=== PATIENT | male | born 1975 | race African-American/Black ===

== ENCOUNTER → 2017-02-23 17:04 | Emergency (ER) | payer MEDICAID | END | disposition left against medical advice (07) | LOC: D.ER 17:04 | DX: Z02.9 Encounter for administrative examinations, unspecified (principal) ==

== ENCOUNTER 2017-10-08 00:53 | Inpatient (IN) | payer MEDICAID ==
[~2017-10-08] VITALS: Ht 182.9 cm; Wt 72.7 kg
[2017-10-08] MEDS ORDERED: METOPROLOL TART50 MG PO (02:16)
[2017-10-08] MEDS ORDERED: TRIUMEQ PO (03:04)
[2017-10-08] MEDS ORDERED: [UNRECOGNIZED DRUG - OTHER] PO (03:05)
[2017-10-08 03:09] VITALS: BP 134/85; Ht 182.9 cm; Wt 72.7 kg
[2017-10-08 07:01] VITALS: BP 159/100
[2017-10-08 09:25] VITALS: BP 151/105
[2017-10-08 12:43] VITALS: BP 151/103
[2017-10-08 17:32] VITALS: BP 142/92
[2017-10-08 20:00] VITALS: BP 132/79
[2017-10-09] VITALS: BP 120/76
[2017-10-09 04:00] VITALS: BP 127/82
[2017-10-09 06:09] LABS: ALBUMIN 2.8 g/dL (3.4-5.0); ANION GAP 12.2 mmol/L (8-16); BILIRUBIN - TOTAL 0.21 mg/dL (0.2-1.3); CALCIUM 8.4 mg/dL (8.5-10.1); CREATININE - SERUM 1.2 mg/dL (0.6-1.3); POTASSIUM - SERUM 3.2 mmol/L (3.5-5.1); PROTEIN - SERUM 6.9 g/dL (6.4-8.2)
[2017-10-09 06:15] LABS: HEMATOCRIT 35.3 % (42.0-54.0); MCH 32.9 pg (26.0-34.0); MCV 96.7 fL (80.0-100.0); MEAN PLATELET VOLUME 9.7 fL (7.4-10.4); PLATELET COUNT 252 10x3/uL (130-400); RBC 3.65 10x6/uL (4.20-6.10); RDW 15.8 % (11.5-14.5); WBC 3.6 10x3/uL (4.8-10.8)
[2017-10-09 07:42] LABS: EOSINOPHILS 2 % (0-7); LYMPHOCYTES 42 % (15-50); MONOCYTES 14 % (2-11); NEUTROPHILS 40 % (40-80); PLATELET ESTIMATE NORMAL
[2017-10-09 10:18] VITALS: BP 138/90
[2017-10-09 17:37] VITALS: BP 126/84
[2017-10-09 17:51] VITALS: BP 121/85
[2017-10-09] MEDS ORDERED: DIFLUCAN200 MG PO (18:15)
[2017-10-09] MEDS ORDERED: DOXYCYCLINE HY100 M2 PO (18:15)
[2017-10-12 13:14] LABS: EHRLICHIA CHAFF IGG Negative (Neg:<1:64); EHRLICHIA CHAFF IGM Negative (Neg:<1:20); HGE IGG TITER Negative (Neg:<1:64); HGE IGM TITER Negative (Neg:<1:20)
[2017-10-12 20:08] LABS: RMSF IGM 0.16 index (0.00-0.89)
[2017-10-17 13:16] LABS: F. TULARENSIS - IGG Negative (()); F. TULARENSIS - IGM Negative (())
== END 2017-10-09 19:15 | disposition home or self-care (01) | DRG 976 ==
LOC: D.M2 00:53
PROVIDERS: Family Medicine; Student in an Organized Health Care Education/Training Program
DX: B20 Human immunodeficiency virus [HIV] disease (principal); J18.9 Pneumonia, unspecified organism; B37.81 Candidal esophagitis; I10 Essential (primary) hypertension; K21.9 Gastro-esophageal reflux disease without esophagitis; F41.8 Other specified anxiety disorders; L21.9 Seborrheic dermatitis, unspecified; M25.562 Pain in left knee; M25.561 Pain in right knee; Z87.891 Personal history of nicotine dependence

== ENCOUNTER 2018-05-13 03:29 | Inpatient (IN) | payer MEDICAID ==
[~2018-05-13] VITALS: Ht 182.9 cm; Wt 65.8 kg
[~2018-05-13 03:29] MED LIST: DIFLUCAN200 MG PO; DOXYCYCLINE HY100 M2 PO; METOPROLOL TART50 MG PO; TRIUMEQ PO; [UNRECOGNIZED DRUG - OTHER] PO
[2018-05-13 05:05] VITALS: BP 142/93
[2018-05-13 06:44] LABS: BASOPHILS 0 % (0-2); EOSINOPHILS 0.5 % (0-7); HEMATOCRIT 36.4 % (42.0-54.0); HEMOGLOBIN 12.6 g/dL (13.5-17.5); LYMPHOCYTES 19.2 % (15-50); MCH 32.6 pg (26.0-34.0); MCHC 34.6 g/dL (31.0-37.0); MCV 94.3 fL (80.0-100.0); MEAN PLATELET VOLUME 9.4 fL (7.4-10.4); MONOCYTES 18.7 % (2-11); NEUTROPHILS 61.6 % (40-80); PLATELET COUNT 234 10x3/uL (130-400); RBC 3.86 10x6/uL (4.20-6.10); RDW 13.5 % (11.5-14.5); WBC 3.6 10x3/uL (4.8-10.8)
[2018-05-13 07:09] LABS: ALBUMIN 2.7 g/dL (3.4-5.0); ANION GAP 9.4 mmol/L (8-16); BILIRUBIN - TOTAL 0.36 mg/dL (0.2-1.3); CARBON DIOXIDE 31.5 mmol/L (21.0-32.0); CREATININE - SERUM 1.2 mg/dL (0.6-1.3); PROTEIN - SERUM 7.1 g/dL (6.4-8.2)
[2018-05-13 07:17] LABS: POTASSIUM - SERUM 2.9 mmol/L (3.5-5.1)
[2018-05-13 07:30] VITALS: BP 136/77
[2018-05-13 10:00] VITALS: BP 140/84
[2018-05-13 13:00] VITALS: BP 142/66
[2018-05-13 20:44] VITALS: BP 147/95
[2018-05-14 00:24] VITALS: BP 158/84
[2018-05-14 04:58] VITALS: BP 146/86
[2018-05-14 07:13] LABS: BASOPHILS 0.3 % (0-2); EOSINOPHILS 0.8 % (0-7); HEMATOCRIT 34.2 % (42.0-54.0); HEMOGLOBIN 11.8 g/dL (13.5-17.5); MCH 32.3 pg (26.0-34.0); MCHC 34.5 g/dL (31.0-37.0); MCV 93.7 fL (80.0-100.0); MONOCYTES 19.1 % (2-11); NEUTROPHILS 61.8 % (40-80); PLATELET COUNT 225 10x3/uL (130-400); RBC 3.65 10x6/uL (4.20-6.10); RDW 13.3 % (11.5-14.5); WBC 3.8 10x3/uL (4.8-10.8)
[2018-05-14 07:30] LABS: PROTIME 12.8 SECONDS (11.6-15.0)
[2018-05-14 07:40] LABS: ALBUMIN 2.3 g/dL (3.4-5.0); ALKALINE PHOSPHATASE 108 U/L (46-116); ALT (SGPT) 13 U/L (10-68); BILIRUBIN - TOTAL 0.32 mg/dL (0.2-1.3); CALC OSMOLALITY 271 mosm/kg (275-300); CALCIUM 7.6 mg/dL (8.5-10.1); CARBON DIOXIDE 32.2 mmol/L (21.0-32.0); CHLORIDE - SERUM 101 mmol/L (98-107); GLUCOSE 93 mg/dL (74-106); POTASSIUM - SERUM 3.2 mmol/L (3.5-5.1); PROTEIN - SERUM 6.3 g/dL (6.4-8.2); SODIUM 137 mmol/L (136-145); UREA NITROGEN 8 mg/dL (7-18); eGFR NON AFRICAN AMERICAN 87 mL/min (90-120)
[2018-05-14 08:39] VITALS: BP 135/80
[2018-05-14 13:02] VITALS: BP 124/94
[2018-05-14 14:49] VITALS: Ht 182.9 cm; Wt 65.8 kg
[2018-05-14 16:37] VITALS: BP 140/86
[2018-05-15 06:14] LABS: BASOPHILS 0 % (0-2); EOSINOPHILS 0.7 % (0-7); HEMATOCRIT 32.5 % (42.0-54.0); HEMOGLOBIN 11.2 g/dL (13.5-17.5); IMMATURE GRANULOCYTES 0.2 % (0-5); LYMPHOCYTES 17.7 % (15-50); MCH 32.2 pg (26.0-34.0); MCHC 34.5 g/dL (31.0-37.0); MCV 93.4 fL (80.0-100.0); MEAN PLATELET VOLUME 9.4 fL (7.4-10.4); MONOCYTES 15.1 % (2-11); NEUTROPHILS 66.3 % (40-80); PLATELET COUNT 247 10x3/uL (130-400); RBC 3.48 10x6/uL (4.20-6.10); RDW 13.4 % (11.5-14.5); WBC 4.3 10x3/uL (4.8-10.8)
[2018-05-15 06:40] LABS: ALBUMIN 2.1 g/dL (3.4-5.0); ANION GAP 8.5 mmol/L (8-16); BILIRUBIN - TOTAL 0.29 mg/dL (0.2-1.3); CALCIUM 7.4 mg/dL (8.5-10.1); CARBON DIOXIDE 29.5 mmol/L (21.0-32.0); CREATININE - SERUM 1.2 mg/dL (0.6-1.3); PROTEIN - SERUM 5.9 g/dL (6.4-8.2)
[2018-05-15 13:24] VITALS: BP 147/88
[2018-05-15 16:40] VITALS: BP 155/92
[2018-05-15 20:32] VITALS: BP 142/80
[2018-05-16 00:38] VITALS: BP 127/82
[2018-05-16 06:45] LABS: HEMATOCRIT 31.1 % (42.0-54.0); HEMOGLOBIN 10.6 g/dL (13.5-17.5); MCH 32.1 pg (26.0-34.0); MCHC 34.1 g/dL (31.0-37.0); MCV 94.2 fL (80.0-100.0); MEAN PLATELET VOLUME 9.5 fL (7.4-10.4); PLATELET COUNT 240 10x3/uL (130-400); RDW 13.5 % (11.5-14.5)
[2018-05-16 07:24] LABS: ALKALINE PHOSPHATASE 91 U/L (46-116); ALT (SGPT) 8 U/L (10-68); BILIRUBIN - TOTAL 0.18 mg/dL (0.2-1.3); CALC OSMOLALITY 272 mosm/kg (275-300); CALCIUM 7.4 mg/dL (8.5-10.1); CARBON DIOXIDE 28.6 mmol/L (21.0-32.0); CHLORIDE - SERUM 105 mmol/L (98-107); CREATININE - SERUM 1.1 mg/dL (0.6-1.3); GLUCOSE 93 mg/dL (74-106); PROTEIN - SERUM 5.8 g/dL (6.4-8.2); SODIUM 137 mmol/L (136-145); UREA NITROGEN 9 mg/dL (7-18); eGFR NON AFRICAN AMERICAN 78 mL/min (90-120)
[2018-05-16 07:26] LABS: POTASSIUM - SERUM 3.4 mmol/L (3.5-5.1)
[2018-05-16 07:35] LABS: ANISOCYTOSIS OCC; EOSINOPHILS 1 % (0-7); LYMPHOCYTES 21 % (15-50); MONOCYTES 20 % (2-11); NEUTROPHILS 54 % (40-80); PLATELET ESTIMATE NORMAL; SMUDGE CELLS OCC
[2018-05-16 09:14] VITALS: BP 142/85
[2018-05-16 12:19] VITALS: BP 105/50
[2018-05-16 15:26] LABS: BASOS 0 % (Not Estab.); CD4 - % CD4 POS. LYMPH 9.1 % (30.8-58.5); CD4 - ABSOLUTE CD4 HELPER 64 /uL (359-1519); EOS 2 % (Not Estab.); EOS (ABSOLUTE) 0.1 x10E3/uL (0.0-0.4); HEMATOCRIT 32.9 % (37.5-51.0); HEMOGLOBIN 11.1 g/dL (13.0-17.7); LYMPHS 16 % (Not Estab.); LYMPHS (ABSOLUTE) 0.7 x10E3/uL (0.7-3.1); MCH 32.1 pg (26.6-33.0); MCHC 33.7 g/dL (31.5-35.7); MCV 95 fL (79-97); MONOCYTES 17 % (Not Estab.); MONOCYTES (ABSOLUTE) 0.7 x10E3/uL (0.1-0.9); NEUTROPHILS 65 % (Not Estab.); NEUTROPHILS (ABSOLUTE) 2.7 x10E3/uL (1.4-7.0); PLATELETS 282 x10E3/uL (150-379); RBC 3.46 x10E6/uL (4.14-5.80); RDW 14.3 % (12.3-15.4); WBC 4.2 x10E3/uL (3.4-10.8)
[2018-05-16 16:17] VITALS: BP 140/86
[2018-05-16 21:29] VITALS: BP 147/95
[2018-05-17 00:12] VITALS: BP 156/92
[2018-05-17 04:36] VITALS: BP 156/88
[2018-05-17 05:58] LABS: BASOPHILS 0 % (0-2); EOSINOPHILS 3.3 % (0-7); HEMATOCRIT 33.6 % (42.0-54.0); HEMOGLOBIN 11.6 g/dL (13.5-17.5); IMMATURE GRANULOCYTES 0.4 % (0-5); MCH 32.5 pg (26.0-34.0); MCHC 34.5 g/dL (31.0-37.0); MCV 94.1 fL (80.0-100.0); MEAN PLATELET VOLUME 9.3 fL (7.4-10.4); MONOCYTES 13.1 % (2-11); NEUTROPHILS 56.2 % (40-80); PLATELET COUNT 232 10x3/uL (130-400); RBC 3.57 10x6/uL (4.20-6.10); RDW 13.8 % (11.5-14.5); WBC 2.7 10x3/uL (4.8-10.8)
[2018-05-17 06:14] LABS: ALBUMIN 2.2 g/dL (3.4-5.0); ALKALINE PHOSPHATASE 101 U/L (46-116); ALT (SGPT) 8 U/L (10-68); BILIRUBIN - TOTAL 0.16 mg/dL (0.2-1.3); CALC OSMOLALITY 275 mosm/kg (275-300); CALCIUM 7.7 mg/dL (8.5-10.1); CARBON DIOXIDE 29.4 mmol/L (21.0-32.0); CHLORIDE - SERUM 105 mmol/L (98-107); GLUCOSE 96 mg/dL (74-106); POTASSIUM - SERUM 3.5 mmol/L (3.5-5.1); PROTEIN - SERUM 6.1 g/dL (6.4-8.2); SODIUM 139 mmol/L (136-145); UREA NITROGEN 8 mg/dL (7-18); eGFR NON AFRICAN AMERICAN 87 mL/min (90-120)
[2018-05-17 08:54] VITALS: BP 123/79
[2018-05-17 16:15] VITALS: BP 144/84
[2018-05-17 20:00] VITALS: BP 153/86
[2018-05-18] VITALS: BP 128/80
[2018-05-18 04:00] VITALS: BP 138/86
[2018-05-18 05:28] LABS: BASOPHILS 0 % (0-2); HEMATOCRIT 33.6 % (42.0-54.0); HEMOGLOBIN 11.3 g/dL (13.5-17.5); LYMPHOCYTES 29.5 % (15-50); MCH 31.6 pg (26.0-34.0); MCHC 33.6 g/dL (31.0-37.0); MCV 93.9 fL (80.0-100.0); MEAN PLATELET VOLUME 9.5 fL (7.4-10.4); MONOCYTES 13.8 % (2-11); NEUTROPHILS 51.7 % (40-80); PLATELET COUNT 261 10x3/uL (130-400); RBC 3.58 10x6/uL (4.20-6.10); RDW 13.7 % (11.5-14.5); WBC 2.6 10x3/uL (4.8-10.8)
[2018-05-18 06:09] LABS: ALBUMIN 2.2 g/dL (3.4-5.0); ALKALINE PHOSPHATASE 103 U/L (46-116); ALT (SGPT) 9 U/L (10-68); BILIRUBIN - TOTAL 0.17 mg/dL (0.2-1.3); CALC OSMOLALITY 272 mosm/kg (275-300); CALCIUM 7.8 mg/dL (8.5-10.1); CARBON DIOXIDE 28.8 mmol/L (21.0-32.0); CHLORIDE - SERUM 104 mmol/L (98-107); GLUCOSE 88 mg/dL (74-106); POTASSIUM - SERUM 3.5 mmol/L (3.5-5.1); PROTEIN - SERUM 6.2 g/dL (6.4-8.2); SODIUM 138 mmol/L (136-145); UREA NITROGEN 8 mg/dL (7-18); eGFR NON AFRICAN AMERICAN 87 mL/min (90-120)
[2018-05-18 09:06] VITALS: BP 125/85
[2018-05-18 11:15] VITALS: BP 133/83
[2018-05-18 16:11] VITALS: BP 151/87
[2018-05-18 21:27] VITALS: BP 128/81
[2018-05-19] VITALS: BP 142/86
[2018-05-19 04:00] VITALS: BP 160/94
[2018-05-19 05:46] LABS: BASOPHILS 0 % (0-2); EOSINOPHILS 4.9 % (0-7); HEMATOCRIT 33.8 % (42.0-54.0); HEMOGLOBIN 11.4 g/dL (13.5-17.5); IMMATURE GRANULOCYTES 0.3 % (0-5); LYMPHOCYTES 20.5 % (15-50); MCH 31.6 pg (26.0-34.0); MCHC 33.7 g/dL (31.0-37.0); MCV 93.6 fL (80.0-100.0); MEAN PLATELET VOLUME 9.5 fL (7.4-10.4); MONOCYTES 18.7 % (2-11); NEUTROPHILS 55.6 % (40-80); PLATELET COUNT 285 10x3/uL (130-400); RBC 3.61 10x6/uL (4.20-6.10); RDW 13.6 % (11.5-14.5)
[2018-05-19 05:47] LABS: WBC 3.3 10x3/uL (4.8-10.8)
[2018-05-19 06:47] LABS: ALKALINE PHOSPHATASE 102 U/L (46-116); ALT (SGPT) 7 U/L (10-68); BILIRUBIN - TOTAL 0.28 mg/dL (0.2-1.3); CALC OSMOLALITY 269 mosm/kg (275-300); CALCIUM 7.8 mg/dL (8.5-10.1); CARBON DIOXIDE 26.1 mmol/L (21.0-32.0); CHLORIDE - SERUM 105 mmol/L (98-107); GLUCOSE 96 mg/dL (74-106); PROTEIN - SERUM 6.1 g/dL (6.4-8.2); SODIUM 136 mmol/L (136-145); UREA NITROGEN 7 mg/dL (7-18); eGFR NON AFRICAN AMERICAN 87 mL/min (90-120)
[2018-05-19 08:15] VITALS: BP 158/81
[2018-05-19 12:19] VITALS: BP 133/82
[2018-05-19 16:00] VITALS: BP 153/96
[2018-05-19 20:00] VITALS: BP 150/95
[2018-05-20 05:35] VITALS: BP 161/94
[2018-05-20 07:00] LABS: BASOPHILS 0.2 % (0-2); HEMATOCRIT 33.8 % (42.0-54.0); HEMOGLOBIN 11.9 g/dL (13.5-17.5); IMMATURE GRANULOCYTES 0.2 % (0-5); LYMPHOCYTES 15.4 % (15-50); MCH 32.8 pg (26.0-34.0); MCHC 35.2 g/dL (31.0-37.0); MCV 93.1 fL (80.0-100.0); MEAN PLATELET VOLUME 9.8 fL (7.4-10.4); MONOCYTES 15.9 % (2-11); NEUTROPHILS 66.3 % (40-80); PLATELET COUNT 281 10x3/uL (130-400); RBC 3.63 10x6/uL (4.20-6.10); RDW 13.6 % (11.5-14.5)
[2018-05-20 07:25] LABS: ALBUMIN 2.3 g/dL (3.4-5.0); ALKALINE PHOSPHATASE 127 U/L (46-116); CALC OSMOLALITY 272 mosm/kg (275-300); CALCIUM 7.9 mg/dL (8.5-10.1); CARBON DIOXIDE 31.3 mmol/L (21.0-32.0); CHLORIDE - SERUM 102 mmol/L (98-107); CREATININE - SERUM 0.9 mg/dL (0.6-1.3); GLUCOSE 88 mg/dL (74-106); POTASSIUM - SERUM 3.6 mmol/L (3.5-5.1); PROTEIN - SERUM 6.7 g/dL (6.4-8.2); SODIUM 138 mmol/L (136-145); UREA NITROGEN 8 mg/dL (7-18); eGFR NON AFRICAN AMERICAN > 90 mL/min (90-120)
[2018-05-20 07:26] LABS: ALT (SGPT) 16 U/L (10-68)
[2018-05-20 08:20] VITALS: BP 176/103
[2018-05-20 13:16] VITALS: BP 160/104
[2018-05-20 16:12] LABS: HISTOPLASMA GAL MANNAN AG SER <0.5 (<0.5 ng/mL)
[2018-05-20 17:05] VITALS: BP 162/72
[2018-05-20 20:35] VITALS: BP 156/106
[2018-05-21 04:19] VITALS: BP 139/83
[2018-05-21 07:20] LABS: BASOPHILS 0.2 % (0-2); EOSINOPHILS 0 % (0-7); HEMATOCRIT 36.1 % (42.0-54.0); HEMOGLOBIN 12.6 g/dL (13.5-17.5); IMMATURE GRANULOCYTES 0.2 % (0-5); LYMPHOCYTES 16.8 % (15-50); MCH 32.3 pg (26.0-34.0); MCHC 34.9 g/dL (31.0-37.0); MCV 92.6 fL (80.0-100.0); MEAN PLATELET VOLUME 9.6 fL (7.4-10.4); MONOCYTES 11.4 % (2-11); NEUTROPHILS 71.4 % (40-80); PLATELET COUNT 281 10x3/uL (130-400); RDW 13.9 % (11.5-14.5)
[2018-05-21 07:25] LABS: WBC 5.2 10x3/uL (4.8-10.8)
[2018-05-21 07:45] LABS: ALBUMIN 2.4 g/dL (3.4-5.0); ALKALINE PHOSPHATASE 115 U/L (46-116); ALT (SGPT) 15 U/L (10-68); BILIRUBIN - TOTAL 0.39 mg/dL (0.2-1.3); CALC OSMOLALITY 273 mosm/kg (275-300); CARBON DIOXIDE 29.6 mmol/L (21.0-32.0); CHLORIDE - SERUM 101 mmol/L (98-107); CREATININE - SERUM 1.1 mg/dL (0.6-1.3); GLUCOSE 119 mg/dL (74-106); POTASSIUM - SERUM 3.4 mmol/L (3.5-5.1); PROTEIN - SERUM 6.8 g/dL (6.4-8.2); SODIUM 137 mmol/L (136-145); UREA NITROGEN 9 mg/dL (7-18); eGFR NON AFRICAN AMERICAN 78 mL/min (90-120)
[2018-05-21 08:20] VITALS: BP 134/87
[2018-05-21 12:16] VITALS: BP 156/88
[2018-05-21 16:33] VITALS: BP 141/84
[2018-05-21 21:22] VITALS: BP 153/89
[2018-05-22 04:16] VITALS: BP 114/77
[2018-05-22 06:08] LABS: BASOPHILS 0 % (0-2); EOSINOPHILS 0.9 % (0-7); HEMATOCRIT 33.7 % (42.0-54.0); HEMOGLOBIN 11.8 g/dL (13.5-17.5); LYMPHOCYTES 29.4 % (15-50); MCH 33.1 pg (26.0-34.0); MCV 94.4 fL (80.0-100.0); MEAN PLATELET VOLUME 9.9 fL (7.4-10.4); MONOCYTES 16.3 % (2-11); NEUTROPHILS 53.4 % (40-80); PLATELET COUNT 265 10x3/uL (130-400); RBC 3.57 10x6/uL (4.20-6.10); RDW 14.1 % (11.5-14.5)
[2018-05-22 06:28] LABS: WBC 3.2 10x3/uL (4.8-10.8)
[2018-05-22 06:38] LABS: ALBUMIN 2.4 g/dL (3.4-5.0); ALKALINE PHOSPHATASE 107 U/L (46-116); BILIRUBIN - TOTAL 0.27 mg/dL (0.2-1.3); CALC OSMOLALITY 279 mosm/kg (275-300); CALCIUM 7.9 mg/dL (8.5-10.1); CARBON DIOXIDE 28.4 mmol/L (21.0-32.0); CHLORIDE - SERUM 105 mmol/L (98-107); GLUCOSE 119 mg/dL (74-106); POTASSIUM - SERUM 3.1 mmol/L (3.5-5.1); PROTEIN - SERUM 6.6 g/dL (6.4-8.2); SODIUM 141 mmol/L (136-145); UREA NITROGEN 8 mg/dL (7-18); eGFR NON AFRICAN AMERICAN 87 mL/min (90-120)
[2018-05-22 06:39] LABS: ALT (SGPT) 19 U/L (10-68)
[2018-05-22] MEDS ORDERED: VALTREX500 MG PO (09:23)
[2018-05-22] MEDS ORDERED: NYSTATIN ORAL SU5 ML PO (09:23)
[2018-05-22 09:42] VITALS: BP 152/93
== END 2018-05-22 12:17 | disposition home or self-care (01) | DRG 975 ==
LOC: D.ER 03:29 → D.EDHOLD 05:14 → D.MS 05:14 → D.SDCHOLD 05-16 13:21 → D.MS 05-16 13:22
PROVIDERS: Family Medicine; Family Medicine Adult Medicine; Internal Medicine Gastroenterology; Internal Medicine Nephrology; Student in an Organized Health Care Education/Training Program
DX: B20 Human immunodeficiency virus [HIV] disease (principal); B00.89 Other herpesviral infection; K22.10 Ulcer of esophagus without bleeding; B37.81 Candidal esophagitis; E44.0 Moderate protein-calorie malnutrition; Z68.1 Body mass index [BMI] 19.9 or less, adult; B37.0 Candidal stomatitis; R13.10 Dysphagia, unspecified; F32.9 Major depressive disorder, single episode, unspecified; F41.9 Anxiety disorder, unspecified; E87.6 Hypokalemia; D64.9 Anemia, unspecified; L21.9 Seborrheic dermatitis, unspecified; I10 Essential (primary) hypertension

== ENCOUNTER 2018-06-29 21:31 | Emergency (ER) | payer MEDICAID ==
[~2018-06-29] VITALS: Ht 182.9 cm; Wt 70.5 kg
[~2018-06-29 21:31] MED LIST changes: +NYSTATIN ORAL SU5 ML PO; +VALTREX500 MG PO
[2018-06-29 21:34] VITALS: Ht 182.9 cm; Wt 70.5 kg
[2018-06-29 22:07] LABS: BASOPHILS 0.2 % (0-2); EOSINOPHILS 1.6 % (0-7); HEMATOCRIT 39.6 % (42.0-54.0); HEMOGLOBIN 13.7 g/dL (13.5-17.5); IMMATURE GRANULOCYTES 0.2 % (0-5); LYMPHOCYTES 28.2 % (15-50); MCH 33.8 pg (26.0-34.0); MCHC 34.6 g/dL (31.0-37.0); MCV 97.8 fL (80.0-100.0); MEAN PLATELET VOLUME 10.5 fL (7.4-10.4); MONOCYTES 16.6 % (2-11); NEUTROPHILS 53.2 % (40-80); RBC 4.05 10x6/uL (4.20-6.10); RDW 15.5 % (11.5-14.5); WBC 5.1 10x3/uL (4.8-10.8)
[2018-06-29 22:13] LABS: PLATELET COUNT 150 10x3/uL (130-400)
[2018-06-29 22:22] LABS: INR 0.95 (0.85-1.17); PROTIME 12.3 SECONDS (11.6-15.0)
[2018-06-29 22:30] LABS: ALBUMIN 3.3 g/dL (3.4-5.0); ALKALINE PHOSPHATASE 93 U/L (46-116); ALT (SGPT) 19 U/L (10-68); BILIRUBIN - TOTAL 0.36 mg/dL (0.2-1.3); CALC OSMOLALITY 281 mosm/kg (275-300); CALCIUM 8.5 mg/dL (8.5-10.1); CARBON DIOXIDE 29.6 mmol/L (21.0-32.0); CHLORIDE - SERUM 105 mmol/L (98-107); CREATININE - SERUM 1.2 mg/dL (0.6-1.3); GLUCOSE 91 mg/dL (74-106); POTASSIUM - SERUM 3.2 mmol/L (3.5-5.1); SODIUM 141 mmol/L (136-145); UREA NITROGEN 15 mg/dL (7-18); eGFR NON AFRICAN AMERICAN 71 mL/min (90-120)
[2018-06-29 22:41] LABS: CKMB 1.7 U/L (0.0-3.6); CREATINE KINASE 151 UL (21-232); PRO BNP 293 pg/mL (0-125); TROPONIN-I < 0.017 ng/mL (0.000-0.060)
[2018-06-29 23:30] VITALS: BP 157/105
== END 2018-06-29 23:31 | disposition home or self-care (01) ==
LOC: D.ER 21:31
PROVIDERS: Family Medicine
DX: R07.89 Other chest pain (principal); G40.909 Epilepsy, unspecified, not intractable, without status epilepticus; K21.9 Gastro-esophageal reflux disease without esophagitis

== ENCOUNTER 2018-08-14 19:19 | Emergency (ER) | payer MEDICAID ==
[~2018-08-14] VITALS: Ht 182.9 cm; Wt 70.5 kg
[2018-08-14 19:23] VITALS: Ht 182.9 cm; Wt 70.5 kg
[2018-08-14] MEDS ORDERED: NORCO 10-325 TA1 TAB PO (19:49)
[2018-08-14 20:22] VITALS: BP 158/101
== END 2018-08-14 20:22 | disposition home or self-care (01) ==
LOC: D.ER 19:19
DX: J02.9 Acute pharyngitis, unspecified (principal); C15.9 Malignant neoplasm of esophagus, unspecified; B20 Human immunodeficiency virus [HIV] disease; G40.909 Epilepsy, unspecified, not intractable, without status epilepticus; I10 Essential (primary) hypertension

== ENCOUNTER 2018-08-19 22:38 | Inpatient (IN) | payer MEDICAID ==
[~2018-08-19] VITALS: Ht 182.9 cm; Wt 68.0 kg
--- NOTE | ~2018-08-19 | MORECARE ---
CASE MANAGEMENT DISCHARGE SUMMARY PATIENT: DEJAH BALDWIN UNIT: [id number] ADM DATE: 08/20/18 AGE: 42 : 75 SEX: M ROOM/BED: D.2219 AUTHOR: ARASELI CISNEROS PHYSICIAN: REFERRING PHYSICIAN: JIM SHAH MD DATE OF SERVICE: 08/22/18 Discharge Plan Patient Name: DEJAH BALDWIN Facility: [facility]:[place] : 1975 Planned Disposition: Home Anticipated Discharge Date: Discharge Date: Expected LOS: Initial Reviewer: [email or web address] Initial Review Date: 08/20/2018 Generated: 08/22/18 12:23 pm Patient Name: DEJAH BALDWIN Page 12151 at 1123 All edits/amendments must be made on the electronic document DICTATION DATE: 08/22/18 112 EARTH SCIENCE TEACHER: JORI 08/22/18 112 RPT#: [id number] DC DATE: STATUS: ADM IN [facility] [address] [place] [address] END OF REPORT
--- NOTE | ~2018-08-19 | MORECARE ---
CASE MANAGEMENT DISCHARGE SUMMARY PATIENT: DEJAH BALDWIN UNIT: [id number] ADM DATE: 08/20/18 AGE: 42 : 75 SEX: M ROOM/BED: D.2219 AUTHOR: ARASELI CISNEROS PHYSICIAN: REFERRING PHYSICIAN: JMI SHAH MD DATE OF SERVICE: 08/22/18 Discharge Plan Patient Name: DEJAH BALDWIN Facility: [facility]:[place] : 1975 Planned Disposition: Home Anticipated Discharge Date: Discharge Date: Expected LOS: Initial Reviewer: [email or web address] Initial Review Date: 08/20/2018 Generated: 08/22/18 12:37 pm Comments DCP- Discharge Planning Updated by [email or web address]: Prema Farfan on 08/22/18 10:[address] Patient Name: DEJAH BALDWIN Admission Status: ER Accout number: [id number] Admission Date: 08-20-2018 : 1975 Admission Diagnosis: Attending: JIM SHAH Current LOS: 2 Anticipated DC Date: Planned Disposition: Home Primary Insurance: MEDICAID [place] Discharge Planning Comments: CM met with patient to assess discharge planning needs. Patient stated that he lives independently with his mother and she will be the one to take him home. There is 3 steps to enter his home. He denies any needs for HH at this time, but is requesting a BSC. I will send order to [facility]. CM will continue to follow and assist with DC planning. Bench Assembler Battery: Prema Farfan DCPIA - Discharge Planning Initial Assessment Updated by [email or web address]: Prema Farfan on 08/22/18 11:26 am * Is the patient Alert and Oriented? Yes * How many steps to enter\exit or inside your home? * [facility] * Pharmacy Budget * Preadmission Environment Home with Family * ADLs Independent * Equipment None * List name and contact numbers for known caregivers / representatives who currently or will assist patient after discharge: Chai (mom) [phone] * Verbal permission to speak to the caregivers and representatives has been obtained from the patient. N/A * Community resources currently utilized None * Additional services required to return to the preadmission environment? Yes * Can the patient safely return to the preadmission environment? Yes * Has this patient been hospitalized within the prior 30 days at any hospital? No External Providers External Provider: [facility] Next Contact Date: Service Request Date: Service Type: Resolution: Reviewer: Comments: Last DP export: 08/22/18 10:30 Patient Name: DEJAH BALDWIN Page 59839 at 1137 All edits/amendments must be made on the electronic document DICTATION DATE: 08/22/18 1136 MANAGER TELECOM: JORI 08/22/18 1136 RPT#: [id number] DC DATE: STATUS: ADM IN [facility] [address] [place] [address] END OF REPORT
--- NOTE | ~2018-08-19 | MORECARE ---
CASE MANAGEMENT DISCHARGE SUMMARY PATIENT: DEJAH BALDWIN UNIT: [id number] ADM DATE: 08/20/18 AGE: 42 : 75 SEX: M ROOM/BED: D.2219 AUTHOR: ARASELI CISNEROS PHYSICIAN: REFERRING PHYSICIAN: JIM SHAH MD DATE OF SERVICE: 08/22/18 Discharge Plan Patient Name: DEJAH BALDWIN [facility] [facility] 1975 Planned Disposition: Home Anticipated Discharge Date: Discharge Date: Expected LOS: Initial Reviewer: [email or web address] Initial Review Date: 08/20/2018 Generated: 08/22/18 12:30 pm DCPIA - Discharge Planning Initial Assessment Updated by [email or web address]: Prema Farfan on 08/22/18 11:26 am * Is the patient Alert and Oriented? Yes * How many steps to enter\exit or inside your home? * [facility] * Pharmacy Budget * Preadmission Environment Home with Family * ADLs Independent * Equipment None * List name and contact numbers for known caregivers / representatives who currently or will assist patient after discharge: Chai (mom) [phone] * Verbal permission to speak to the caregivers and representatives has been obtained from the patient. N/A * Community resources currently utilized None * Additional services required to return to the preadmission environment? Yes * Can the patient safely return to the preadmission environment? Yes * Has this patient been hospitalized within the prior 30 days at any hospital? No Last DP export: 08/22/18 10:23 Patient Name: DEJAH BALDWIN Page 59720 at 1130 All edits/amendments must be made on the electronic document DICTATION DATE: 08/22/18 1129 JOB MOLDER: JORI 08/22/18 1129 RPT#: [id number] DC DATE: STATUS: ADM IN [facility] [address] [place] [address] END OF REPORT
[~2018-08-19 22:38] MED LIST changes: +NORCO 10-325 TA1 TAB PO
[2018-08-20 00:27] LABS: BASOPHILS 0.2 % (0-2); EOSINOPHILS 0 % (0-7); HEMATOCRIT 38.7 % (42.0-54.0); HEMOGLOBIN 13.1 g/dL (13.5-17.5); IMMATURE GRANULOCYTES 0.4 % (0-5); LYMPHOCYTES 13.3 % (15-50); MCH 32.3 pg (26.0-34.0); MCHC 33.9 g/dL (31.0-37.0); MCV 95.3 fL (80.0-100.0); MEAN PLATELET VOLUME 9.3 fL (7.4-10.4); NEUTROPHILS 69.1 % (40-80); RBC 4.06 10x6/uL (4.20-6.10); RDW 13.4 % (11.5-14.5); WBC 4.9 10x3/uL (4.8-10.8)
[2018-08-20 00:29] LABS: PLATELET COUNT 249 10x3/uL (130-400)
[2018-08-20 00:35] LABS: ALBUMIN 2.9 g/dL (3.4-5.0); ANION GAP 9.9 mmol/L (8-16); BILIRUBIN - TOTAL 0.44 mg/dL (0.2-1.3); CALCIUM 8.4 mg/dL (8.5-10.1); CARBON DIOXIDE 30.1 mmol/L (21.0-32.0); CREATININE - SERUM 1.2 mg/dL (0.6-1.3)
[2018-08-20 00:42] LABS: MAGNESIUM - SERUM 2.1 mg/dL (1.8-2.4)
[2018-08-20 01:31] LABS: APPEARANCE HAZY (CLEAR); COLOR DK YELLOW (YELLOW); GLUCOSE NEGATIVE (NEGATIVE); NITRITE NEGATIVE (NEGATIVE); PROTEIN 1+ mg/dL (NEGATIVE)
[2018-08-20 01:32] LABS: BILIRUBIN NEGATIVE (NEGATIVE); KETONE NEGATIVE (NEGATIVE)
[2018-08-20 01:33] LABS: BACTERIA FEW /hpf (NONE SEEN); EPITHELIAL CELLS 0-5 /hpf (0-5); MUCUS >1+ /lpf (NONE SEEN); RED CELLS - URINE NONE SEEN /hpf (0-5); WHITE CELLS - URINE 0-5 /hpf (0-5)
[2018-08-20 01:38] LABS: UDS - AMPHET NEGATIVE QUAL (NEGATIVE); UDS - BARB NEGATIVE QUAL (NEGATIVE); UDS - BENZO NEGATIVE QUAL (NEGATIVE); UDS - COCAINE POSITIVE QUAL (NEGATIVE); UDS - OPIATE NEGATIVE QUAL (NEGATIVE); UDS - PCP NEGATIVE QUAL (NEGATIVE); UDS - THC NEGATIVE QUAL (NEGATIVE)
[2018-08-20 03:27] VITALS: BP 157/106; BMI 20.4
[2018-08-20 05:18] VITALS: BP 157/106
[2018-08-20 08:24] VITALS: BP 138/86
[2018-08-20 10:34] VITALS: BMI 20.3
[2018-08-20 10:48] LABS: BASOPHILS 0.2 % (0-2); EOSINOPHILS 0.5 % (0-7); HEMATOCRIT 33.5 % (42.0-54.0); HEMOGLOBIN 11.3 g/dL (13.5-17.5); IMMATURE GRANULOCYTES 0.2 % (0-5); LYMPHOCYTES 17.6 % (15-50); MCH 32.5 pg (26.0-34.0); MCHC 33.7 g/dL (31.0-37.0); MCV 96.3 fL (80.0-100.0); MONOCYTES 14.3 % (2-11); NEUTROPHILS 67.2 % (40-80); PLATELET COUNT 234 10x3/uL (130-400); RBC 3.48 10x6/uL (4.20-6.10); RDW 13.5 % (11.5-14.5); WBC 4.3 10x3/uL (4.8-10.8)
[2018-08-20 12:04] VITALS: BP 140/76
[2018-08-20 15:15] LABS: ALBUMIN 2.5 g/dL (3.4-5.0); BILIRUBIN - TOTAL 0.29 mg/dL (0.2-1.3); CALCIUM 8.4 mg/dL (8.5-10.1); CARBON DIOXIDE 26.5 mmol/L (21.0-32.0); CREATININE - SERUM 1.2 mg/dL (0.6-1.3)
[2018-08-20 15:31] LABS: POTASSIUM - SERUM 3.5 mmol/L (3.5-5.1)
[2018-08-20 16:44] VITALS: BP 133/71
[2018-08-20 17:08] VITALS: Ht 182.9 cm; Wt 68.0 kg
[2018-08-20 21:11] VITALS: BP 129/72
[2018-08-21 07:09] LABS: BASOPHILS 0 % (0-2); EOSINOPHILS 0.4 % (0-7); HEMATOCRIT 36.1 % (42.0-54.0); HEMOGLOBIN 12.3 g/dL (13.5-17.5); IMMATURE GRANULOCYTES 0.2 % (0-5); LYMPHOCYTES 13.8 % (15-50); MCH 32.6 pg (26.0-34.0); MCHC 34.1 g/dL (31.0-37.0); MCV 95.8 fL (80.0-100.0); MEAN PLATELET VOLUME 9.5 fL (7.4-10.4); MONOCYTES 11.4 % (2-11); NEUTROPHILS 74.2 % (40-80); PLATELET COUNT 240 10x3/uL (130-400); RBC 3.77 10x6/uL (4.20-6.10); RDW 13.7 % (11.5-14.5)
[2018-08-21 07:11] LABS: WBC 5.4 10x3/uL (4.8-10.8)
[2018-08-21 07:32] LABS: ALBUMIN 2.5 g/dL (3.4-5.0); ALKALINE PHOSPHATASE 116 U/L (46-116); BILIRUBIN - TOTAL 0.29 mg/dL (0.2-1.3); CALCIUM 8.2 mg/dL (8.5-10.1); CARBON DIOXIDE 30.2 mmol/L (21.0-32.0); CHLORIDE - SERUM 101 mmol/L (98-107); CREATININE - SERUM 1.1 mg/dL (0.6-1.3); GLUCOSE 93 mg/dL (74-106); POTASSIUM - SERUM 3.5 mmol/L (3.5-5.1); PROTEIN - SERUM 7.1 g/dL (6.4-8.2); SODIUM 137 mmol/L (136-145); eGFR NON AFRICAN AMERICAN 78 mL/min (90-120)
[2018-08-21 07:36] LABS: ALT (SGPT) 5 U/L (10-68); CALC OSMOLALITY 272 mosm/kg (275-300); UREA NITROGEN 9 mg/dL (7-18)
[2018-08-21 08:17] LABS: RAPID PLASMA REAGIN Non Reactive (Non Reactive)
[2018-08-21 08:51] VITALS: BP 154/90
[2018-08-21 12:36] VITALS: BP 152/95
[2018-08-21 13:18] LABS: BASOS 0 % (Not Estab.); CD4 - % CD4 POS. LYMPH 8.5 % (30.8-58.5); CD4 - ABSOLUTE CD4 HELPER 60 /uL (359-1519); EOS 2 % (Not Estab.); EOS (ABSOLUTE) 0.1 x10E3/uL (0.0-0.4); HEMATOCRIT 39.9 % (37.5-51.0); LYMPHS 14 % (Not Estab.); LYMPHS (ABSOLUTE) 0.7 x10E3/uL (0.7-3.1); MCH 32.2 pg (26.6-33.0); MCHC 32.6 g/dL (31.5-35.7); MCV 99 fL (79-97); MONOCYTES 15 % (Not Estab.); MONOCYTES (ABSOLUTE) 0.7 x10E3/uL (0.1-0.9); NEUTROPHILS 69 % (Not Estab.); NEUTROPHILS (ABSOLUTE) 3.5 x10E3/uL (1.4-7.0); PLATELETS 290 x10E3/uL (150-379); RBC 4.04 x10E6/uL (4.14-5.80); RDW 13.9 % (12.3-15.4)
[2018-08-21 16:52] VITALS: BP 133/85
[2018-08-21 20:00] VITALS: BP 138/88
[2018-08-22 00:30] VITALS: BP 136/86
[2018-08-22 05:23] LABS: BASOPHILS 0.2 % (0-2); EOSINOPHILS 0.7 % (0-7); HEMATOCRIT 32.2 % (42.0-54.0); HEMOGLOBIN 11.3 g/dL (13.5-17.5); IMMATURE GRANULOCYTES 0.5 % (0-5); LYMPHOCYTES 22.4 % (15-50); MCH 33.5 pg (26.0-34.0); MCHC 35.1 g/dL (31.0-37.0); MCV 95.5 fL (80.0-100.0); MEAN PLATELET VOLUME 9.2 fL (7.4-10.4); MONOCYTES 16.1 % (2-11); NEUTROPHILS 60.1 % (40-80); PLATELET COUNT 247 10x3/uL (130-400); RBC 3.37 10x6/uL (4.20-6.10); RDW 13.8 % (11.5-14.5); WBC 4.3 10x3/uL (4.8-10.8)
[2018-08-22 05:47] LABS: INR 1.08 (0.85-1.17); PROTIME 13.7 SECONDS (11.6-15.0)
[2018-08-22 06:03] LABS: ALBUMIN 2.3 g/dL (3.4-5.0); ANION GAP 7.8 mmol/L (8-16); BILIRUBIN - TOTAL 0.25 mg/dL (0.2-1.3); CALCIUM 7.6 mg/dL (8.5-10.1); CARBON DIOXIDE 29.8 mmol/L (21.0-32.0); CREATININE - SERUM 1.2 mg/dL (0.6-1.3); POTASSIUM - SERUM 3.6 mmol/L (3.5-5.1); PRE-ALBUMIN 15.7 mg/dL (18.0-35.7); PROTEIN - SERUM 6.5 g/dL (6.4-8.2)
[2018-08-22 08:52] VITALS: BP 126/80
[2018-08-22 17:37] VITALS: BP 117/75
[2018-08-22 21:55] VITALS: BP 133/76
[2018-08-23 06:23] LABS: BASOPHILS 0 % (0-2); EOSINOPHILS 1.8 % (0-7); HEMATOCRIT 31.7 % (42.0-54.0); HEMOGLOBIN 10.4 g/dL (13.5-17.5); LYMPHOCYTES 19.8 % (15-50); MCH 31.6 pg (26.0-34.0); MCHC 32.8 g/dL (31.0-37.0); MCV 96.4 fL (80.0-100.0); MEAN PLATELET VOLUME 9.3 fL (7.4-10.4); NEUTROPHILS 66.4 % (40-80); PLATELET COUNT 259 10x3/uL (130-400); RBC 3.29 10x6/uL (4.20-6.10); RDW 13.8 % (11.5-14.5); WBC 4.5 10x3/uL (4.8-10.8)
[2018-08-23 06:30] LABS: ANION GAP 8.5 mmol/L (8-16); BILIRUBIN - TOTAL 0.17 mg/dL (0.2-1.3); CALCIUM 7.4 mg/dL (8.5-10.1); CARBON DIOXIDE 27.7 mmol/L (21.0-32.0); CREATININE - SERUM 1.2 mg/dL (0.6-1.3); POTASSIUM - SERUM 3.2 mmol/L (3.5-5.1)
[2018-08-23 06:37] VITALS: BP 137/80
[2018-08-23 07:56] VITALS: BP 150/86
[2018-08-23 11:56] VITALS: BP 140/72
[2018-08-23 17:17] VITALS: BP 149/82
[2018-08-23 22:08] VITALS: BP 133/84
[2018-08-24 06:11] VITALS: BP 136/80
[2018-08-24 06:11] LABS: BASOPHILS 0.2 % (0-2); EOSINOPHILS 1.6 % (0-7); HEMATOCRIT 33.1 % (42.0-54.0); IMMATURE GRANULOCYTES 0.2 % (0-5); LYMPHOCYTES 10.3 % (15-50); MCH 32.2 pg (26.0-34.0); MCHC 33.2 g/dL (31.0-37.0); MCV 96.8 fL (80.0-100.0); MEAN PLATELET VOLUME 9.5 fL (7.4-10.4); MONOCYTES 10.7 % (2-11); PLATELET COUNT 260 10x3/uL (130-400); RBC 3.42 10x6/uL (4.20-6.10); RDW 14.1 % (11.5-14.5); WBC 5.2 10x3/uL (4.8-10.8)
[2018-08-24 06:35] LABS: ALBUMIN 2.3 g/dL (3.4-5.0); ALKALINE PHOSPHATASE 115 U/L (46-116); BILIRUBIN - TOTAL 0.12 mg/dL (0.2-1.3); CALC OSMOLALITY 276 mosm/kg (275-300); CALCIUM 8.1 mg/dL (8.5-10.1); CARBON DIOXIDE 26.7 mmol/L (21.0-32.0); CHLORIDE - SERUM 107 mmol/L (98-107); CREATININE - SERUM 1.1 mg/dL (0.6-1.3); GLUCOSE 97 mg/dL (74-106); PROTEIN - SERUM 6.7 g/dL (6.4-8.2); SODIUM 139 mmol/L (136-145); UREA NITROGEN 9 mg/dL (7-18); eGFR NON AFRICAN AMERICAN 78 mL/min (90-120)
[2018-08-24 06:36] LABS: ALT (SGPT) 5 U/L (10-68)
[2018-08-24 10:04] VITALS: BP 137/87
[2018-08-24] MEDS ORDERED: DIFLUCAN200 MG PO (11:29)
[2018-08-24] MEDS ORDERED: DAPSONE100 MG PO (11:30)
[2018-08-24] MEDS ORDERED: CARAFATE1 G/10 ML PO (11:30)
[2018-08-24] MEDS ORDERED: PEPCID40 MG PO (11:31)
[2018-08-24] MEDS ORDERED: VALTREX500 MG PO (11:32)
[2018-08-24] MEDS ORDERED: PROTONIX40 MG PO (11:32)
[2018-08-24] MEDS ORDERED: ZOFRAN ODT4 MG/UDTAB PO (11:33)
[2018-08-24] MEDS ORDERED: ONCOLOGY MOUTHWASH PO (11:34)
[2018-08-24] MEDS ORDERED: ULTRAM50 MG PO (11:34)
== END 2018-08-24 15:04 | disposition home or self-care (01) | DRG 975 ==
LOC: D.ER 22:38 → D.MS 08-20 00:46 → D.EDHOLD 08-20 00:46 → D.MS 08-20 01:31
PROVIDERS: Emergency Medicine; Family Medicine; Internal Medicine Gastroenterology
PROC: 0DB58ZX Excision of Esophagus, Via Natural or Artificial Opening Endoscopic, Diagnostic (ICD-10-PCS; principal; 2018-08-22 11:30)
DX: B37.81 Candidal esophagitis (principal); B20 Human immunodeficiency virus [HIV] disease; K22.10 Ulcer of esophagus without bleeding; B00.89 Other herpesviral infection; K29.70 Gastritis, unspecified, without bleeding; E87.6 Hypokalemia

== ENCOUNTER 2018-10-18 18:15 | Emergency (ER) | payer MEDICAID ==
[~2018-10-18] VITALS: Ht 182.9 cm; Wt 70.5 kg
[~2018-10-18 18:15] MED LIST changes: +CARAFATE1 G/10 ML PO; +DAPSONE100 MG PO; +ONCOLOGY MOUTHWASH PO; +PEPCID40 MG PO; +PROTONIX40 MG PO; +ULTRAM50 MG PO; +ZOFRAN ODT4 MG/UDTAB PO
[2018-10-18 18:28] VITALS: Ht 182.9 cm; Wt 70.5 kg
[2018-10-18 19:08] LABS: BASOPHILS 0 % (0-2); EOSINOPHILS 0.9 % (0-7); HEMATOCRIT 32.5 % (42.0-54.0); HEMOGLOBIN 11.1 g/dL (13.5-17.5); IMMATURE GRANULOCYTES 0.2 % (0-5); LYMPHOCYTES 13.6 % (15-50); MCH 31.7 pg (26.0-34.0); MCHC 34.2 g/dL (31.0-37.0); MCV 92.9 fL (80.0-100.0); MEAN PLATELET VOLUME 10.1 fL (7.4-10.4); MONOCYTES 13.9 % (2-11); NEUTROPHILS 71.4 % (40-80); PLATELET COUNT 207 10x3/uL (130-400); RDW 14.7 % (11.5-14.5); WBC 6.4 10x3/uL (4.8-10.8)
[2018-10-18 19:44] LABS: ALBUMIN 3.2 g/dL (3.4-5.0); ALKALINE PHOSPHATASE 89 U/L (46-116); ALT (SGPT) 10 U/L (10-68); BILIRUBIN - TOTAL 0.38 mg/dL (0.2-1.3); CALC OSMOLALITY 280 mosm/kg (275-300); CALCIUM 8.7 mg/dL (8.5-10.1); CARBON DIOXIDE 26.1 mmol/L (21.0-32.0); CHLORIDE - SERUM 103 mmol/L (98-107); CREATININE - SERUM 1.2 mg/dL (0.6-1.3); GLUCOSE 115 mg/dL (74-106); PROTEIN - SERUM 8.2 g/dL (6.4-8.2); SODIUM 140 mmol/L (136-145); UREA NITROGEN 15 mg/dL (7-18); eGFR NON AFRICAN AMERICAN 70 mL/min (90-120)
[2018-10-18 19:49] LABS: MAGNESIUM - SERUM 1.9 mg/dL (1.8-2.4)
[2018-10-18 20:25] LABS: VALPROIC ACID (DEPAKOTE) < 3.0 ug/mL (50.0-100.0)
[2018-10-18] MEDS ORDERED: DEPAKOTE250 MG PO (20:30)
[2018-10-18 21:37] VITALS: BP 138/74
== END 2018-10-18 21:37 | disposition home or self-care (01) ==
LOC: D.ER 18:15
PROVIDERS: Family Medicine
DX: G40.909 Epilepsy, unspecified, not intractable, without status epilepticus (principal); F14.11 Cocaine abuse, in remission; E87.6 Hypokalemia; Z91.14 Patient's other noncompliance with medication regimen; I10 Essential (primary) hypertension; B20 Human immunodeficiency virus [HIV] disease

== ENCOUNTER 2018-12-14 18:38 | Inpatient (IN) | payer MEDICAID ==
[~2018-12-14] VITALS: Ht 182.9 cm; Wt 60.3 kg
[~2018-12-14 18:38] MED LIST changes: +DEPAKOTE250 MG PO
[2018-12-14 20:17] LABS: BASOPHILS 0.2 % (0-2); EOSINOPHILS 0.9 % (0-7); HEMATOCRIT 29.6 % (42.0-54.0); HEMOGLOBIN 9.9 g/dL (13.5-17.5); IMMATURE GRANULOCYTES 0.4 % (0-5); LYMPHOCYTES 12.3 % (15-50); MCH 30.9 pg (26.0-34.0); MCHC 33.4 g/dL (31.0-37.0); MCV 92.5 fL (80.0-100.0); MEAN PLATELET VOLUME 9.5 fL (7.4-10.4); MONOCYTES 11.9 % (2-11); NEUTROPHILS 74.3 % (40-80); PLATELET COUNT 239 10x3/uL (130-400); RDW 14.3 % (11.5-14.5); WBC 4.7 10x3/uL (4.8-10.8)
[2018-12-14 20:29] LABS: ALBUMIN 2.2 g/dL (3.4-5.0); ALKALINE PHOSPHATASE 101 U/L (46-116); BILIRUBIN - TOTAL 0.21 mg/dL (0.2-1.3); CALC OSMOLALITY 273 mosm/kg (275-300); CALCIUM 7.8 mg/dL (8.5-10.1); CHLORIDE - SERUM 101 mmol/L (98-107); CREATININE - SERUM 0.9 mg/dL (0.6-1.3); GLUCOSE 107 mg/dL (74-106); POTASSIUM - SERUM 3.2 mmol/L (3.5-5.1); PROTEIN - SERUM 7.3 g/dL (6.4-8.2); SODIUM 137 mmol/L (136-145); UREA NITROGEN 12 mg/dL (7-18); eGFR NON AFRICAN AMERICAN > 90 mL/min (90-120)
[2018-12-14 20:31] LABS: ALT (SGPT) 4 U/L (10-68)
--- NOTE | 2018-12-14 22:14 | NUR ---
PT PROVIDED WITH SANDWICH TRAY PRIOR TO TRANSPORT TO FLOOR
[2018-12-14 22:58] VITALS: BP 140/81; BMI 17.9
--- NOTE | 2018-12-14 23:05 | NUR ---
FUND RAISER ASSESSMENT COMPLETED. VSS. IV TO RAC WITH LR AT 100CC/HR. PT ALERT AND ORIENTED TO PERSON,PLACE AND TIME. OPEN SORES NOTED TO L SIDE OF MOUTH AND R NECK. SR UP X2, CALL LIGHT WITHIN REACH.
[2018-12-15 06:40] LABS: APPEARANCE CLEAR (CLEAR); BILIRUBIN NEGATIVE (NEGATIVE); COLOR YELLOW (YELLOW); GLUCOSE NEGATIVE (NEGATIVE); KETONE NEGATIVE (NEGATIVE); NITRITE NEGATIVE (NEGATIVE); PROTEIN NEGATIVE (NEGATIVE)
--- NOTE | 2018-12-15 07:22 | NUR ---
LAYING IN BED, AWAKE AND ALERT, SOFT SPOKEN, UP AD RICARDA, ON ROOM AIR, NO TELE, RIGHT FOREARM, NS AT 100ML/HR. UP AD RICARDA, DENIES ANY CURRENT NEEDS OR DISCOMFORTS, BED LOWERED AND LOCKED, CALL LIGHT WITHIN REACH. CPOC
[2018-12-15 07:45] LABS: BASOPHILS 0.2 % (0-2); EOSINOPHILS 0.6 % (0-7); HEMATOCRIT 32.9 % (42.0-54.0); HEMOGLOBIN 10.9 g/dL (13.5-17.5); IMMATURE GRANULOCYTES 0.4 % (0-5); LYMPHOCYTES 11.5 % (15-50); MCHC 33.1 g/dL (31.0-37.0); MCV 93.5 fL (80.0-100.0); MEAN PLATELET VOLUME 9.6 fL (7.4-10.4); MONOCYTES 10.5 % (2-11); NEUTROPHILS 76.8 % (40-80); PLATELET COUNT 232 10x3/uL (130-400); RBC 3.52 10x6/uL (4.20-6.10); RDW 14.6 % (11.5-14.5); WBC 5.2 10x3/uL (4.8-10.8)
[2018-12-15 07:53] LABS: CALC OSMOLALITY 275 mosm/kg (275-300); CALCIUM 7.7 mg/dL (8.5-10.1); CARBON DIOXIDE 27.7 mmol/L (21.0-32.0); CHLORIDE - SERUM 102 mmol/L (98-107); GLUCOSE 104 mg/dL (74-106); POTASSIUM - SERUM 3.4 mmol/L (3.5-5.1); SODIUM 138 mmol/L (136-145); UREA NITROGEN 13 mg/dL (7-18); eGFR NON AFRICAN AMERICAN 87 mL/min (90-120)
[2018-12-15 18:42] LABS: % SATURATION 24 % (15-55); IRON 31 ug/dl (35-150); TOTAL IRON BIND CAPACITY 128 ug/dl (260-445); UNSAT IRON BIND CAPACITY 97 ug/dl (150-375)
[2018-12-15 18:53] LABS: FERRITIN 412 ng/mL (3-244)
[2018-12-15 19:15] LABS: VALPROIC ACID (DEPAKOTE) < 50.0 ug/mL (50.0-100.0)
--- NOTE | 2018-12-15 19:30 | NUR ---
STOOL SPECIMEN COLLECTED AND TAKEN TO LAB.
--- NOTE | 2018-12-16 02:35 | NUR ---
I have reviewed this patient and I concur with the Shift Assessment completed by the Licensed Practical Nurse today this shift.
--- NOTE | 2018-12-16 07:15 | NUR ---
PT SITTING UP IN BED. ALERT AND ORIENTED. ROOM AIR. SR ON THE MONTIOR. HIV POSITIVE. RIGHT FA 20G IV NS AT 100ML/HR. ELECTROLYTE PROTOCOL, MAGNESIUM 1.7 WILL TREAT PER PROTOCOL. USES URINAL AND IS UP ADLIB. WILL CONTINUE WITH PLAN OF CARE. PT HAS NO FURTHER NEEDS AT THIS TIME. BED LOW. CL IN REACH.
[2018-12-16 08:00] LABS: BASOPHILS 0 % (0-2); EOSINOPHILS 0.3 % (0-7); HEMATOCRIT 33.5 % (42.0-54.0); HEMOGLOBIN 11.1 g/dL (13.5-17.5); IMMATURE GRANULOCYTES 0.3 % (0-5); LYMPHOCYTES 13.7 % (15-50); MCH 30.8 pg (26.0-34.0); MCHC 33.1 g/dL (31.0-37.0); MCV 93.1 fL (80.0-100.0); MEAN PLATELET VOLUME 9.3 fL (7.4-10.4); MONOCYTES 8.8 % (2-11); NEUTROPHILS 76.9 % (40-80); PLATELET COUNT 239 10x3/uL (130-400); RDW 14.6 % (11.5-14.5); WBC 6.3 10x3/uL (4.8-10.8)
[2018-12-16 08:05] LABS: ALKALINE PHOSPHATASE 98 U/L (46-116); BILIRUBIN - TOTAL 0.18 mg/dL (0.2-1.3); CALCIUM 7.7 mg/dL (8.5-10.1); CARBON DIOXIDE 30.3 mmol/L (21.0-32.0); CHLORIDE - SERUM 104 mmol/L (98-107); GLUCOSE 103 mg/dL (74-106); MAGNESIUM - SERUM 1.7 mg/dL (1.8-2.4); POTASSIUM - SERUM 3.5 mmol/L (3.5-5.1); PROTEIN - SERUM 6.8 g/dL (6.4-8.2); SODIUM 139 mmol/L (136-145); eGFR NON AFRICAN AMERICAN 87 mL/min (90-120)
[2018-12-16 08:08] LABS: ALT (SGPT) 6 U/L (10-68); CALC OSMOLALITY 275 mosm/kg (275-300); UREA NITROGEN 6 mg/dL (7-18)
[2018-12-16 08:38] VITALS: BP 141/81
--- NOTE | 2018-12-16 11:08 | NUR ---
COMPLETE BED CHANGE DONE.
--- NOTE | 2018-12-16 11:09 | NUR ---
PT STATES HE HAS ROACHES IN HIS ROOM. WORK ORDER PLACED AND MAINFRAME SYSTEMS PROGRAMMER TOLD EVS.
[2018-12-16 11:40] VITALS: BP 136/76
--- NOTE | 2018-12-16 12:04 | NUR ---
I have reviewed this patient and I concur with the Shift Assessment completed by the Licensed Practical Nurse today this shift.
--- NOTE | 2018-12-16 12:51 | NUR ---
MED REC WRONG. UPDATED PT'S MED REC.
[2018-12-16 13:34] VITALS: BMI 18.0
--- NOTE | 2018-12-16 14:15 | NUR ---
TORIN CHASE WANTED TO KNOW IF IT WAS OK PER DR. RAMÍREZ TO BE DISCHARGED TODAY. I STATED TO HER I HAVEN'T SEEN OR TALKED TO HER TODAY BUT THERE IS A NOTE BUT IT DOES NOT SAY ANYTHING AND I WILL CALL DR. RAMÍREZ'S OFFICE AND FIND OUT. TORIN CHASE VERBALIZED UNDERSTANDING. CALLED DR. RAMÍREZ'S OFFICE AND SPOKE WITH HER NURSE WHO SPOKE WITH HER AND SHE STATES DR. RAMÍREZ SAID THAT'S FINE FOR PT TO GET DISCHARGED. CALLED AND SPOKE WITH TORIN CHASE AND STATED THIS TO HER AND SHE VERBALIZED UNDERSTANDING AND STATED SHE IS GOING TO DISCHARGE PATIENT TODAY.
[2018-12-16] MEDS ORDERED: Nystatin Oral Susp [ PO (14:16)
[2018-12-16] MEDS ORDERED: PROTONIX40 MG PO (14:17)
[2018-12-16] MEDS ORDERED: DAPSONE25 MG PO (14:18)
[2018-12-16] MEDS ORDERED: VALTREX500 MG PO (14:19)
[2018-12-16] MEDS ORDERED: ZITHROMAX500 MG PO (14:19)
[2018-12-16 14:55] VITALS: BP 139/71
--- NOTE | 2018-12-16 16:22 | NUR ---
RIGHT FA 20G IV DC'D WITH CATH INTACT. DISCHARGE INSTRUCTIONS AND WRITTEN SCRIPT GIVEN TO PT AND TEACHING DONE. PT HAS NO FURTHER QUESTIONS. CHART COPY SIGNED. TELEMETRY DC'D.
--- NOTE | 2018-12-16 16:28 | NUR ---
PT TAKEN DOWN VIA WC BY EMPLOYEE BENEFITS ATTORNEY.
[2018-12-16 16:34] VITALS: Ht 182.9 cm; Wt 60.3 kg
--- NOTE | 2018-12-16 17:26 | MORECARE ---
CASE MANAGEMENT DISCHARGE SUMMARY PATIENT: DEJAH BALDWIN UNIT: [id number] ADM DATE: 12/14/18 AGE: 43 : 75 SEX: M ROOM/BED: D.2127 AUTHOR: ARASELI CISNEROS PHYSICIAN: REFERRING PHYSICIAN: JIM SHAH MD DATE OF SERVICE: 12/16/18 Discharge Plan Patient Name: DEJAH BALDWIN Facility: [facility]:[place] : 1975 Planned Disposition: Home Anticipated Discharge Date: 12/16/18 Discharge Date: 12/16/2018 Expected LOS: 2 Initial Reviewer: [email or web address] Initial Review Date: 12/16/2018 Generated: 12/16/18 6:26 pm Patient Name: DEJAH BALDWIN Page 85138 at 1726 All edits/amendments must be made on the electronic document DICTATION DATE: 12/16/181725 CODE NUMBER STAMPER: JORI 12/16/181725 RPT#: [id number] DC DATE:12/16/18 STATUS: DIS IN [facility] [address] [place] [address] END OF REPORT
--- NOTE | 2018-12-16 17:38 | MORECARE ---
CASE MANAGEMENT DISCHARGE SUMMARY PATIENT: DEJAH BALDWIN UNIT: [id number] ADM DATE: 12/14/18 AGE: 43 : 75 SEX: M ROOM/BED: D.7349 AUTHOR: AMELIA,DOC PHYSICIAN: REFERRING PHYSICIAN: JIM SHAH MD DATE OF SERVICE: 12/16/18 Discharge Plan Patient Name: DEJAH BALDWIN Facility: [facility]:[place] : 1975 Planned Disposition: Home Anticipated Discharge Date: 12/16/18 Discharge Date: 12/16/2018 Expected LOS: 2 Initial Reviewer: [email or web address] Initial Review Date: 12/16/2018 Generated: 12/16/18 6:38 pm Comments DCP- Discharge Planning Updated by [email or web address]: Haris Rosenberg on 12/16/18 4:[address] Patient Name: DEJAH BALDWIN Admission Status: ER Accout number: [id number] Admission Date: 12-14-2018 : 1975 Admission Diagnosis: Attending: JIM SHAH Current LOS: 2 Anticipated DC Date: 12-16-2018 Planned Disposition: Home Primary Insurance: MEDICAID [place] Discharge Planning Comments: CM MET WITH PT IN ROOM TO DISCUSS DISCHARGE PLANNING AND NEEDS. PT REPORTS LIVING AT HOME INDEPENDENTLY WITH HIS MOTHER. PT HAS NO MEDICAL EQUIPMENT AND NO OUTSIDE SERVICES ASSISTING IN THE HOME. CM DISCUSSED AVAILABILITY OF HOME HEALTH, REHAB SERVICES AND MEDICAL EQUIPMENT. PT DENIES DISCHARGE NEEDS, REPORTS HIS UNCLE WILL PICK HIM UP FOR DISCHARGE HOME. FORECLOSURE CLERK NURSE NOTIFIED. Rib Cutter: Haris Rosenberg DCPIA - Discharge Planning Initial Assessment Updated by [email or web address]: Haris Rosenberg on 12/16/18 5:28 pm * Is the patient Alert and Oriented? Yes * How many steps to enter\exit or inside your home? 3-O / 2-I * PCP [facility] * Pharm[facility] * Preadmission Environment Home with Family * ADLs Independent * Equipment None * Other Equipment NO MEDICAL EQUIPMENT PROVIDER PREFERENCE * List name and contact numbers for known caregivers / representatives who currently or will assist patient after discharge: MARYAM LINDA, MOTHER, [place] [phone] * Verbal permission to speak to the caregivers and representatives has been obtained from the patient. N/A * Community resources currently utilized None * Please name any agencies selected above. NONE * Additional services required to return to the preadmission environment? No * Can the patient safely return to the preadmission environment? Yes * Has this patient been hospitalized within the prior 30 days at any hospital? No Last DP export: 12/16/18 4:26 p Patient Name: DEJAH BALDWIN Page 57075 at 1738 All edits/amendments must be made on the electronic document DICTATION DATE: 12/16/181736 ELECTRIC SWITCH REPAIRER: DM 12/16/181736 RPT#: [id number] DC DATE:12/16/18 STATUS: DIS IN [facility] [address] [place] [address] END OF REPORT
[2018-12-17 09:24] LABS: FOLATE (FOLIC ACID) - SERUM 7.7 ng/mL (>3.0)
[2018-12-17 13:20] LABS: CD4 - % CD4 POS. LYMPH 7.9 % (30.8-58.5)
== END 2018-12-16 16:29 | disposition home or self-care (01) | DRG 976 ==
LOC: D.ER 18:38 → D.M2 21:57
PROVIDERS: Family Medicine; ADMIT Emergency Medicine; ATTEND Emergency Medicine
DX: B20 Human immunodeficiency virus [HIV] disease (principal); B37.81 Candidal esophagitis; B00.2 Herpesviral gingivostomatitis and pharyngotonsillitis; G40.909 Epilepsy, unspecified, not intractable, without status epilepticus; D64.9 Anemia, unspecified; I10 Essential (primary) hypertension

== ENCOUNTER 2019-01-20 21:01 | Inpatient (IN) | payer MEDICAID ==
[~2019-01-20 21:01] MED LIST changes: +DAPSONE25 MG PO; +Nystatin Oral Susp [ PO; +ZITHROMAX500 MG PO
[2019-01-21 02:57] LABS: BASOPHILS 0.2 % (0-2); EOSINOPHILS 0.3 % (0-7); HEMATOCRIT 28.2 % (42.0-54.0); HEMOGLOBIN 9.2 g/dL (13.5-17.5); IMMATURE GRANULOCYTES 0.6 % (0-5); LYMPHOCYTES 9.6 % (15-50); MCH 29.5 pg (26.0-34.0); MCHC 32.6 g/dL (31.0-37.0); MCV 90.4 fL (80.0-100.0); MEAN PLATELET VOLUME 9.6 fL (7.4-10.4); MONOCYTES 10.3 % (2-11); PLATELET COUNT 256 10x3/uL (130-400); RBC 3.12 10x6/uL (4.20-6.10); RDW 15.7 % (11.5-14.5); WBC 6.5 10x3/uL (4.8-10.8)
[2019-01-21 03:20] LABS: ALBUMIN 2.4 g/dL (3.4-5.0); ALKALINE PHOSPHATASE 77 U/L (46-116); ALT (SGPT) 19 U/L (10-68); BILIRUBIN - TOTAL 0.23 mg/dL (0.2-1.3); CALC OSMOLALITY 275 mosm/kg (275-300); CALCIUM 7.6 mg/dL (8.5-10.1); CARBON DIOXIDE 32.1 mmol/L (21.0-32.0); CHLORIDE - SERUM 102 mmol/L (98-107); CREATININE - SERUM 0.9 mg/dL (0.6-1.3); GLUCOSE 95 mg/dL (74-106); PROTEIN - SERUM 7.5 g/dL (6.4-8.2); SODIUM 139 mmol/L (136-145); TROPONIN-I < 0.017 ng/mL (0.000-0.060); UREA NITROGEN 7 mg/dL (7-18); eGFR NON AFRICAN AMERICAN > 90 mL/min (90-120)
[2019-01-21 03:22] LABS: POTASSIUM - SERUM 2.9 mmol/L (3.5-5.1)
[2019-01-21 07:15] VITALS: BP 145/98
[2019-01-21 07:37] LABS: APPEARANCE CLEAR (CLEAR); BILIRUBIN NEGATIVE (NEGATIVE); COLOR YELLOW (YELLOW); GLUCOSE NEGATIVE (NEGATIVE); KETONE NEGATIVE (NEGATIVE); NITRITE NEGATIVE (NEGATIVE); PROTEIN NEGATIVE (NEGATIVE); UROBILINOGEN NORMAL (NORMAL)
[2019-01-21 08:45] LABS: BASOPHILS 0 % (0-2); EOSINOPHILS 0.4 % (0-7); HEMATOCRIT 29.6 % (42.0-54.0); HEMOGLOBIN 9.6 g/dL (13.5-17.5); IMMATURE GRANULOCYTES 0.4 % (0-5); LYMPHOCYTES 7.4 % (15-50); MCH 29.5 pg (26.0-34.0); MCHC 32.4 g/dL (31.0-37.0); MCV 91.1 fL (80.0-100.0); MEAN PLATELET VOLUME 9.4 fL (7.4-10.4); MONOCYTES 7.5 % (2-11); NEUTROPHILS 84.3 % (40-80); PLATELET COUNT 268 10x3/uL (130-400); RBC 3.25 10x6/uL (4.20-6.10); RDW 15.7 % (11.5-14.5); WBC 7.8 10x3/uL (4.8-10.8)
[2019-01-21 09:10] LABS: ALBUMIN 2.3 g/dL (3.4-5.0); ALKALINE PHOSPHATASE 75 U/L (46-116); ALT (SGPT) 16 U/L (10-68); BILIRUBIN - TOTAL 0.31 mg/dL (0.2-1.3); CALC OSMOLALITY 270 mosm/kg (275-300); CALCIUM 7.7 mg/dL (8.5-10.1); CHLORIDE - SERUM 102 mmol/L (98-107); CKMB 0.2 U/L (0.0-3.6); CREATINE KINASE 73 UL (21-232); GLUCOSE 114 mg/dL (74-106); PROTEIN - SERUM 7.5 g/dL (6.4-8.2); SODIUM 136 mmol/L (136-145); TROPONIN-I < 0.017 ng/mL (0.000-0.060); UREA NITROGEN 7 mg/dL (7-18); eGFR NON AFRICAN AMERICAN 87 mL/min (90-120)
[2019-01-21 09:12] LABS: POTASSIUM - SERUM 3.5 mmol/L (3.5-5.1)
[2019-01-21 11:23] VITALS: BP 152/87
[2019-01-21] MEDS ORDERED: CARDURA2 MG PO (11:59)
[2019-01-21] MEDS ORDERED: PROTONIX40 MG PO (12:00)
[2019-01-21 13:22] VITALS: BP 135/93; BMI 19.0
[2019-01-21 15:55] VITALS: BP 135/93
[2019-01-21 20:55] VITALS: BP 149/87
[2019-01-22 00:46] VITALS: BP 137/92
[2019-01-22 05:25] LABS: BASOPHILS 0 % (0-2); EOSINOPHILS 0.6 % (0-7); HEMATOCRIT 25.5 % (42.0-54.0); HEMOGLOBIN 8.4 g/dL (13.5-17.5); IMMATURE GRANULOCYTES 0.6 % (0-5); LYMPHOCYTES 12.1 % (15-50); MCH 29.9 pg (26.0-34.0); MCHC 32.9 g/dL (31.0-37.0); MCV 90.7 fL (80.0-100.0); MEAN PLATELET VOLUME 9.5 fL (7.4-10.4); MONOCYTES 12.1 % (2-11); NEUTROPHILS 74.6 % (40-80); PLATELET COUNT 249 10x3/uL (130-400); RBC 2.81 10x6/uL (4.20-6.10)
[2019-01-22 05:41] LABS: CALC OSMOLALITY 274 mosm/kg (275-300); CALCIUM 7.7 mg/dL (8.5-10.1); CARBON DIOXIDE 29.4 mmol/L (21.0-32.0); CHLORIDE - SERUM 105 mmol/L (98-107); GLUCOSE 91 mg/dL (74-106); POTASSIUM - SERUM 3.6 mmol/L (3.5-5.1); SODIUM 139 mmol/L (136-145); eGFR NON AFRICAN AMERICAN 87 mL/min (90-120)
[2019-01-22 05:43] VITALS: BP 147/98
[2019-01-22 06:08] LABS: UREA NITROGEN 5 mg/dL (7-18)
[2019-01-22 06:11] LABS: WBC 4.6 10x3/uL (4.8-10.8)
[2019-01-22 14:20] VITALS: BMI 17.9
[2019-01-22 21:07] VITALS: BP 140/76
[2019-01-23] VITALS: BP 141/91
[2019-01-23 05:02] VITALS: BP 145/91
[2019-01-23 06:56] LABS: ALBUMIN 2.1 g/dL (3.4-5.0); ALKALINE PHOSPHATASE 70 U/L (46-116); ALT (SGPT) 13 U/L (10-68); BASOPHILS 0 % (0-2); BILIRUBIN - TOTAL 0.26 mg/dL (0.2-1.3); CALC OSMOLALITY 270 mosm/kg (275-300); CALCIUM 7.6 mg/dL (8.5-10.1); CARBON DIOXIDE 27.8 mmol/L (21.0-32.0); CHLORIDE - SERUM 103 mmol/L (98-107); EOSINOPHILS 0.8 % (0-7); GLUCOSE 98 mg/dL (74-106); HEMATOCRIT 26.7 % (42.0-54.0); HEMOGLOBIN 8.7 g/dL (13.5-17.5); IMMATURE GRANULOCYTES 0.6 % (0-5); LYMPHOCYTES 13.9 % (15-50); MCH 29.4 pg (26.0-34.0); MCHC 32.6 g/dL (31.0-37.0); MCV 90.2 fL (80.0-100.0); MEAN PLATELET VOLUME 9.3 fL (7.4-10.4); MONOCYTES 10.5 % (2-11); NEUTROPHILS 74.2 % (40-80); PLATELET COUNT 290 10x3/uL (130-400); POTASSIUM - SERUM 3.8 mmol/L (3.5-5.1); PROTEIN - SERUM 6.9 g/dL (6.4-8.2); RBC 2.96 10x6/uL (4.20-6.10); RDW 16.1 % (11.5-14.5); SODIUM 136 mmol/L (136-145); WBC 4.7 10x3/uL (4.8-10.8); eGFR NON AFRICAN AMERICAN 87 mL/min (90-120)
[2019-01-23 06:57] LABS: UREA NITROGEN 10 mg/dL (7-18)
[2019-01-23 09:39] VITALS: BP 130/76
--- NOTE | 2019-01-23 15:25 | MORECARE ---
CASE MANAGEMENT DISCHARGE SUMMARY PATIENT: DEJAH BALDWIN UNIT: [id number] ADM DATE: 01/21/19 AGE: 43 : 75 SEX: M ROOM/BED: D.2139 AUTHOR: ARASELI CISNEROS PHYSICIAN: REFERRING PHYSICIAN: JOSH HERNANDEZ MD DATE OF SERVICE: 01/23/19 Discharge Plan Patient Name: DEJAH BALDWIN [facility] [facility] 1975 Planned Disposition: Home Anticipated Discharge Date: 01/23/19 Discharge Date: 01/23/2019 Expected LOS: 2 Initial Reviewer: [email or web address] Initial Review Date: 01/23/2019 Generated: 01/23/19 4:25 pm DCPIA - Discharge Planning Initial Assessment Updated by [email or web address]: Haris Rosenberg on 01/23/19 3:25 pm * Is the patient Alert and Oriented? Yes * How many steps to enter\exit or inside your home? * PCP [facility] * [facility] * Preadmission Environment Home with Family * ADLs Independent * Equipment None * Other Equipment NO MEDICAL EQUIPMENT PROVIDER PREFERENCE * List name and contact numbers for known caregivers / representatives who currently or will assist patient after discharge: MARYAM LINDA, MOTHER, * Verbal permission to speak to the caregivers and representatives has been obtained from the patient. N/A * Community resources currently utilized None * Additional services required to return to the preadmission environment? No * Can the patient safely return to the preadmission environment? Yes * Has this patient been hospitalized within the prior 30 days at any hospital? No Patient Name: DEJAH BALDWIN Page 23510 at 1525 All edits/amendments must be made on the electronic document DICTATION DATE: 01/23/191523 ENDLESS TRACK VEHICLE SUPERVISOR: JORI 01/23/191523 RPT#: [id number] DC DATE:01/23/19 STATUS: DIS IN [facility] [address] [place] [address] END OF REPORT
--- NOTE | 2019-01-23 15:34 | MORECARE ---
CASE MANAGEMENT DISCHARGE SUMMARY PATIENT: DEJAH BALDWIN UNIT: [id number] ADM DATE: 01/21/19 AGE: 43 : 75 SEX: M ROOM/BED: D.2135 AUTHOR: AMELIA,DOC PHYSICIAN: REFERRING PHYSICIAN: JOSH HERNANDEZ MD DATE OF SERVICE: 01/23/19 Discharge Plan Patient Name: DEJAH BALDWIN Facility: [facility]:[place] : 1975 Planned Disposition: Home Anticipated Discharge Date: 01/23/19 Discharge Date: 01/23/2019 Expected LOS: 2 Initial Reviewer: [email or web address] Initial Review Date: 01/23/2019 Generated: 01/23/19 4:34 pm Comments DCP- Discharge Planning Updated by [email or web address]: Haris Rosenberg on 01/23/19 2:[address] Patient Name: DEJAH BALDWIN Admission Status: ER Accout number: [id number] Admission Date: 01-21-2019 : 1975 Admission Diagnosis: Attending: JOSH HERNANDEZ Current LOS: 2 Anticipated DC Date: 01-23-2019 Planned Disposition: Home Primary Insurance: MEDICAID [place] Discharge Planning Comments: CM RECEIVED ORDER FOR "HIV." CM MET WITH PT IN ROOM TO DISCUSS DISCHARGE PLANNING AND NEEDS. PT REPORTS LIVING AT HOME INDEPENDENTLY WITH HIS MOTHER AND GRANDMOTHER. PT HAS NO MEDICAL EQUIPMENT AND NO OUTSIDE SERVICES ASSISTING IN THE HOME. CM DISCUSSED AVAILABILITY OF HOME HEALTH, REHAB SERVICES AND MEDICAL EQUIPMENT. PT DENIES NEED OF HIV RESOURCES HE ALREADY HAS A CLINIC AND RECEIVES MEDICATIONS FROM [facility] IN [place]. PT DENIES DISCHARGE NEEDS, REPORTS HIS MOM WILL PICK HIM UP FOR DISCHARGE HOME. Director Of Global Sales: Haris Rosenberg DCPIA - Discharge Planning Initial Assessment Updated by [id number]: Haris Rosenberg on 01/23/19 3:25 pm * Is the patient Alert and Oriented? Yes * How many steps to enter\\exit or inside your home? * PCP [facility] [place] * [facility] * Preadmission Environment Home with Family * ADLs Independent * Equipment None * Other Equipment NO MEDICAL EQUIPMENT PROVIDER PREFERENCE * List name and contact numbers for known caregivers / representatives who currently or will assist patient after discharge: MARYAM LINDA, MOTHER, * Verbal permission to speak to the caregivers and representatives has been obtained from the patient. N/A * Community resources currently utilized None * Additional services required to return to the preadmission environment? No * Can the patient safely return to the preadmission environment? Yes * Has this patient been hospitalized within the prior 30 days at any hospital? No Last DP export: 01/23/19 2:25 p Patient Name: DEJAH BALDWIN Page 44444 at 1534 All edits/amendments must be made on the electronic document DICTATION DATE: 01/23/191533 AGRICULTURAL ADVISER: JORI 01/23/191533 RPT#: [id number] DC DATE:01/23/19 STATUS: DIS IN [facility] [address] [place] [address] END OF REPORT
[2019-01-23 18:07] LABS: BASOS 0 % (Not Estab.); CD4 - % CD4 POS. LYMPH 7.7 % (30.8-58.5); CD4 - ABSOLUTE CD4 HELPER 39 /uL (359-1519); EOS 1 % (Not Estab.); EOS (ABSOLUTE) 0.1 x10E3/uL (0.0-0.4); HEMATOCRIT 24.6 % (37.5-51.0); LYMPHS 11 % (Not Estab.); LYMPHS (ABSOLUTE) 0.5 x10E3/uL (0.7-3.1); MCH 29.7 pg (26.6-33.0); MCHC 32.5 g/dL (31.5-35.7); MCV 91 fL (79-97); MONOCYTES 10 % (Not Estab.); MONOCYTES (ABSOLUTE) 0.4 x10E3/uL (0.1-0.9); NEUTROPHILS 78 % (Not Estab.); NEUTROPHILS (ABSOLUTE) 3.5 x10E3/uL (1.4-7.0); PLATELETS 329 x10E3/uL (150-379); RBC 2.69 x10E6/uL (4.14-5.80); RDW 15.9 % (12.3-15.4); WBC 4.5 x10E3/uL (3.4-10.8)
== END 2019-01-23 12:11 | disposition home or self-care (01) | DRG 975 ==
LOC: D.ER 21:01 → D.EDHOLD 01-21 06:23 → D.M2 01-21 11:00
PROVIDERS: Family Medicine; Internal Medicine Gastroenterology; Student in an Organized Health Care Education/Training Program; ADMIT Internal Medicine Nephrology
PROC: 0DB58ZX Excision of Esophagus, Via Natural or Artificial Opening Endoscopic, Diagnostic (ICD-10-PCS; principal; 2019-01-22 13:15)
DX: B20 Human immunodeficiency virus [HIV] disease (principal); B37.81 Candidal esophagitis; K22.10 Ulcer of esophagus without bleeding; G40.909 Epilepsy, unspecified, not intractable, without status epilepticus; I10 Essential (primary) hypertension; Z91.19 Patient's noncompliance with other medical treatment and regimen; D64.9 Anemia, unspecified; K44.9 Diaphragmatic hernia without obstruction or gangrene

== ENCOUNTER 2019-04-15 02:11 | Emergency (ER) | payer MEDICAID ==
[~2019-04-15] VITALS: Ht 182.9 cm; Wt 59.1 kg
[~2019-04-15 02:11] MED LIST changes: +CARDURA2 MG PO
[2019-04-15 02:15] VITALS: Ht 182.9 cm; Wt 59.1 kg
[2019-04-15 02:55] LABS: BASOPHILS 0.2 % (0-2); EOSINOPHILS 0.4 % (0-7); HEMOGLOBIN 8.8 g/dL (13.5-17.5); IMMATURE GRANULOCYTES 0.4 % (0-5); LYMPHOCYTES 11.4 % (15-50); MCH 30.2 pg (26.0-34.0); MCHC 32.6 g/dL (31.0-37.0); MCV 92.8 fL (80.0-100.0); MEAN PLATELET VOLUME 10.8 fL (7.4-10.4); MONOCYTES 11.2 % (2-11); NEUTROPHILS 76.4 % (40-80); RBC 2.91 10x6/uL (4.20-6.10); RDW 20.5 % (11.5-14.5); WBC 5.6 10x3/uL (4.8-10.8)
[2019-04-15 03:00] LABS: PLATELET COUNT 196 10x3/uL (130-400)
[2019-04-15 03:09] LABS: APTT 38.2 SECONDS (22.8-39.4); INR 1.08 (0.85-1.17); PROTIME 13.5 SECONDS (11.6-15.0)
[2019-04-15 03:11] LABS: ALBUMIN 2.7 g/dL (3.4-5.0); ALKALINE PHOSPHATASE 168 U/L (46-116); ALT (SGPT) 55 U/L (10-68); BILIRUBIN - TOTAL 0.36 mg/dL (0.2-1.3); CALC OSMOLALITY 277 mosm/kg (275-300); CALCIUM 8.3 mg/dL (8.5-10.1); CARBON DIOXIDE 31.2 mmol/L (21.0-32.0); CHLORIDE - SERUM 103 mmol/L (98-107); CREATININE - SERUM 1.2 mg/dL (0.6-1.3); GLUCOSE 91 mg/dL (74-106); POTASSIUM - SERUM 3.7 mmol/L (3.5-5.1); PROTEIN - SERUM 8.1 g/dL (6.4-8.2); SODIUM 138 mmol/L (136-145); UREA NITROGEN 19 mg/dL (7-18); eGFR NON AFRICAN AMERICAN 70 mL/min (90-120)
[2019-04-15 03:23] LABS: CKMB 0.9 U/L (0.0-3.6); CREATINE KINASE 48 UL (21-232); MAGNESIUM - SERUM 1.9 mg/dL (1.8-2.4)
[2019-04-15 03:25] LABS: TROPONIN-I < 0.017 ng/mL (0.000-0.060)
[2019-04-15 04:00] LABS: UDS - AMPHET NEGATIVE QUAL (NEGATIVE); UDS - BARB NEGATIVE QUAL (NEGATIVE); UDS - BENZO NEGATIVE QUAL (NEGATIVE); UDS - COCAINE POSITIVE QUAL (NEGATIVE); UDS - OPIATE NEGATIVE QUAL (NEGATIVE); UDS - PCP NEGATIVE QUAL (NEGATIVE); UDS - THC NEGATIVE QUAL (NEGATIVE)
[2019-04-15 04:07] LABS: APPEARANCE CLEAR (CLEAR); BILIRUBIN NEGATIVE (NEGATIVE); COLOR YELLOW (YELLOW); GLUCOSE NEGATIVE (NEGATIVE); KETONE NEGATIVE (NEGATIVE); NITRITE NEGATIVE (NEGATIVE); PROTEIN 1+ mg/dL (NEGATIVE); SPECIFIC GRAVITY 1.015 (1.005-1.020)
[2019-04-15 04:08] LABS: BACTERIA FEW /hpf (NONE SEEN); EPITHELIAL CELLS 0-5 /hpf (0-5); RED CELLS - URINE 0-5 /hpf (0-5); WHITE CELLS - URINE 0-5 /hpf (0-5)
[2019-04-15] MEDS ORDERED: DIFLUCAN100 MG PO (05:53)
[2019-04-15] MEDS ORDERED: CLEOCIN HCL300 MG PO (05:53)
[2019-04-15 08:58] VITALS: BP 138/91
== END 2019-04-15 08:51 | disposition home or self-care (01) ==
LOC: D.ER 02:11
PROVIDERS: Family Medicine
DX: L01.00 Impetigo, unspecified (principal); B20 Human immunodeficiency virus [HIV] disease; F19.10 Other psychoactive substance abuse, uncomplicated; B37.9 Candidiasis, unspecified

== ENCOUNTER 2019-04-24 02:11 | Emergency (ER) | payer MEDICAID ==
[~2019-04-24] VITALS: Ht 182.9 cm; Wt 59.1 kg
[~2019-04-24 02:11] MED LIST changes: +CLEOCIN HCL300 MG PO; +DIFLUCAN100 MG PO
[2019-04-24 02:13] VITALS: Ht 182.9 cm; Wt 59.1 kg
[2019-04-24 02:45] LABS: BASOPHILS 0.2 % (0-2); EOSINOPHILS 0.2 % (0-7); HEMATOCRIT 26.5 % (42.0-54.0); HEMOGLOBIN 8.9 g/dL (13.5-17.5); IMMATURE GRANULOCYTES 0.4 % (0-5); LYMPHOCYTES 13.3 % (15-50); MCH 30.8 pg (26.0-34.0); MCHC 33.6 g/dL (31.0-37.0); MCV 91.7 fL (80.0-100.0); MEAN PLATELET VOLUME 10.2 fL (7.4-10.4); MONOCYTES 13.8 % (2-11); NEUTROPHILS 72.1 % (40-80); RBC 2.89 10x6/uL (4.20-6.10); RDW 20.6 % (11.5-14.5); WBC 5.7 10x3/uL (4.8-10.8)
[2019-04-24 02:54] LABS: PLATELET COUNT 261 10x3/uL (130-400)
[2019-04-24 02:58] LABS: ALBUMIN 2.5 g/dL (3.4-5.0); ALKALINE PHOSPHATASE 144 U/L (46-116); ALT (SGPT) 45 U/L (10-68); BILIRUBIN - TOTAL 0.41 mg/dL (0.2-1.3); CALC OSMOLALITY 270 mosm/kg (275-300); CALCIUM 7.9 mg/dL (8.5-10.1); CARBON DIOXIDE 28.2 mmol/L (21.0-32.0); CHLORIDE - SERUM 102 mmol/L (98-107); CREATININE - SERUM 0.9 mg/dL (0.6-1.3); GLUCOSE 91 mg/dL (74-106); MAGNESIUM - SERUM 1.5 mg/dL (1.8-2.4); PROTEIN - SERUM 7.9 g/dL (6.4-8.2); SODIUM 135 mmol/L (136-145); UREA NITROGEN 15 mg/dL (7-18); eGFR NON AFRICAN AMERICAN > 90 mL/min (90-120)
[2019-04-24 03:03] LABS: VALPROIC ACID (DEPAKOTE) < 3.0 ug/mL (50.0-100.0)
[2019-04-24 04:57] VITALS: BP 134/91
== END 2019-04-24 04:57 | disposition home or self-care (01) ==
LOC: D.ER 02:11
PROVIDERS: Emergency Medicine
DX: G40.909 Epilepsy, unspecified, not intractable, without status epilepticus (principal); B20 Human immunodeficiency virus [HIV] disease; E83.42 Hypomagnesemia

== ENCOUNTER 2019-04-30 01:29 | Emergency (ER) | payer MEDICAID ==
[2019-04-30 01:31] VITALS: Ht 182.9 cm
[2019-04-30 03:15] VITALS: BP 127/86
== END 2019-04-30 02:55 | disposition home or self-care (01) ==
LOC: D.ER 01:29
DX: G40.909 Epilepsy, unspecified, not intractable, without status epilepticus (principal); S00.512A Abrasion of oral cavity, initial encounter; X58.XXXA Exposure to other specified factors, initial encounter; Y93.89 Activity, other specified; Y92.89 Other specified places as the place of occurrence of the external cause

== ENCOUNTER 2019-05-05 09:58 | Emergency (ER) | payer MEDICAID ==
[~2019-05-05] VITALS: Ht 182.9 cm; Wt 54.5 kg
[2019-05-05 10:13] VITALS: Ht 182.9 cm; Wt 54.5 kg
[2019-05-05 11:01] LABS: BASOPHILS 0.1 % (0-2); EOSINOPHILS 0.3 % (0-7); IMMATURE GRANULOCYTES 0.3 % (0-5); MCH 30.9 pg (26.0-34.0); MCHC 33.3 g/dL (31.0-37.0); MCV 92.8 fL (80.0-100.0); MEAN PLATELET VOLUME 10.1 fL (7.4-10.4); MONOCYTES 15.5 % (2-11); NEUTROPHILS 70.8 % (40-80); PLATELET COUNT 298 10x3/uL (130-400); RBC 2.91 10x6/uL (4.20-6.10); RDW 20.5 % (11.5-14.5); WBC 7.6 10x3/uL (4.8-10.8)
[2019-05-05 11:10] LABS: ALBUMIN 2.3 g/dL (3.4-5.0); ALKALINE PHOSPHATASE 98 U/L (46-116); ALT (SGPT) 34 U/L (10-68); BILIRUBIN - TOTAL 0.33 mg/dL (0.2-1.3); CALC OSMOLALITY 271 mosm/kg (275-300); CALCIUM 8.3 mg/dL (8.5-10.1); CARBON DIOXIDE 26.2 mmol/L (21.0-32.0); CHLORIDE - SERUM 102 mmol/L (98-107); CREATININE - SERUM 0.9 mg/dL (0.6-1.3); GLUCOSE 96 mg/dL (74-106); MAGNESIUM - SERUM 1.6 mg/dL (1.8-2.4); PROTEIN - SERUM 7.9 g/dL (6.4-8.2); SODIUM 135 mmol/L (136-145); UREA NITROGEN 17 mg/dL (7-18); eGFR NON AFRICAN AMERICAN > 90 mL/min (90-120)
[2019-05-05 11:12] LABS: POTASSIUM - SERUM 4.3 mmol/L (3.5-5.1)
[2019-05-05 11:17] LABS: UDS - AMPHET NEGATIVE QUAL (NEGATIVE); UDS - BARB NEGATIVE QUAL (NEGATIVE); UDS - BENZO NEGATIVE QUAL (NEGATIVE); UDS - COCAINE POSITIVE QUAL (NEGATIVE); UDS - OPIATE NEGATIVE QUAL (NEGATIVE); UDS - PCP NEGATIVE QUAL (NEGATIVE); UDS - THC NEGATIVE QUAL (NEGATIVE)
[2019-05-05 11:20] LABS: APPEARANCE CLEAR (CLEAR); BACTERIA NONE SEEN /hpf (NONE SEEN); BILIRUBIN NEGATIVE (NEGATIVE); COLOR YELLOW (YELLOW); EPITHELIAL CELLS RARE /hpf (0-5); GLUCOSE NEGATIVE (NEGATIVE); KETONE NEGATIVE (NEGATIVE); MUCUS <1+ /lpf (NONE SEEN); NITRITE NEGATIVE (NEGATIVE); PROTEIN TRACE mg/dL (NEGATIVE); WHITE CELLS - URINE RARE /hpf (0-5)
[2019-05-05] MEDS ORDERED: DEPAKOTE500 MG PO (11:49)
[2019-05-05 12:37] VITALS: BP 141/92
== END 2019-05-05 12:38 | disposition home or self-care (01) ==
LOC: D.ER 09:58
PROVIDERS: Emergency Medicine
DX: G40.909 Epilepsy, unspecified, not intractable, without status epilepticus (principal); F14.10 Cocaine abuse, uncomplicated; E83.42 Hypomagnesemia; Z91.14 Patient's other noncompliance with medication regimen

== ENCOUNTER 2019-05-22 04:50 | Emergency (ER) | payer MEDICAID ==
[~2019-05-22] VITALS: Ht 182.9 cm; Wt 54.5 kg
[~2019-05-22 04:50] MED LIST changes: +DEPAKOTE500 MG PO
[2019-05-22 04:52] VITALS: Ht 182.9 cm; Wt 54.5 kg
[2019-05-22 05:19] LABS: BASOPHILS 0 % (0-2); EOSINOPHILS 0 % (0-7); HEMATOCRIT 30.8 % (42.0-54.0); HEMOGLOBIN 10.5 g/dL (13.5-17.5); LYMPHOCYTES 7.5 % (15-50); MCH 31.5 pg (26.0-34.0); MCHC 34.1 g/dL (31.0-37.0); MCV 92.5 fL (80.0-100.0); MEAN PLATELET VOLUME 9.7 fL (7.4-10.4); MONOCYTES 10.1 % (2-11); NEUTROPHILS 81.4 % (40-80); RBC 3.33 10x6/uL (4.20-6.10)
[2019-05-22 05:24] LABS: PLATELET COUNT 380 10x3/uL (130-400)
[2019-05-22 05:39] LABS: ALBUMIN 3.1 g/dL (3.4-5.0); ALKALINE PHOSPHATASE 103 U/L (46-116); ALT (SGPT) 23 U/L (10-68); BILIRUBIN - TOTAL 0.42 mg/dL (0.2-1.3); CALC OSMOLALITY 281 mosm/kg (275-300); CALCIUM 9.1 mg/dL (8.5-10.1); CARBON DIOXIDE 26.3 mmol/L (21.0-32.0); CHLORIDE - SERUM 103 mmol/L (98-107); GLUCOSE 94 mg/dL (74-106); POTASSIUM - SERUM 3.7 mmol/L (3.5-5.1); PROTEIN - SERUM 9.7 g/dL (6.4-8.2); SODIUM 140 mmol/L (136-145); UREA NITROGEN 22 mg/dL (7-18); eGFR NON AFRICAN AMERICAN 87 mL/min (90-120)
[2019-05-22 05:50] LABS: LIPASE 165 U/L (73-393); MAGNESIUM - SERUM 1.7 mg/dL (1.8-2.4); THYROID STIMULATING HORMONE 3.42 uIU/mL (0.36-3.74)
[2019-05-22] MEDS ORDERED: DIFLUCAN200 MG PO (06:37)
[2019-05-22 08:00] VITALS: BP 128/88
== END 2019-05-22 08:26 | disposition home or self-care (01) ==
LOC: D.ER 04:50
PROVIDERS: Family Medicine
DX: B37.81 Candidal esophagitis (principal); B20 Human immunodeficiency virus [HIV] disease

== ENCOUNTER 2019-05-27 14:09 | Emergency (ER) | payer MEDICAID ==
[~2019-05-27] VITALS: Ht 182.9 cm; Wt 52.3 kg
[2019-05-27 14:15] VITALS: Ht 182.9 cm; Wt 52.3 kg
[2019-05-27 14:43] LABS: BASOPHILS 0 % (0-2); EOSINOPHILS 0.4 % (0-7); HEMATOCRIT 28.5 % (42.0-54.0); HEMOGLOBIN 9.7 g/dL (13.5-17.5); IMMATURE GRANULOCYTES 1.9 % (0-5); LYMPHOCYTES 6.3 % (15-50); MCH 31.5 pg (26.0-34.0); MCV 92.5 fL (80.0-100.0); MEAN PLATELET VOLUME 9.3 fL (7.4-10.4); MONOCYTES 8.4 % (2-11); PLATELET COUNT 339 10x3/uL (130-400); RBC 3.08 10x6/uL (4.20-6.10); RDW 17.4 % (11.5-14.5); WBC 7.5 10x3/uL (4.8-10.8)
[2019-05-27 14:58] LABS: ALBUMIN 2.6 g/dL (3.4-5.0); ALKALINE PHOSPHATASE 90 U/L (46-116); ALT (SGPT) 17 U/L (10-68); BILIRUBIN - TOTAL 0.31 mg/dL (0.2-1.3); CALC OSMOLALITY 277 mosm/kg (275-300); CALCIUM 8.5 mg/dL (8.5-10.1); CARBON DIOXIDE 26.9 mmol/L (21.0-32.0); CHLORIDE - SERUM 103 mmol/L (98-107); CREATININE - SERUM 0.9 mg/dL (0.6-1.3); GLUCOSE 113 mg/dL (74-106); POTASSIUM - SERUM 3.5 mmol/L (3.5-5.1); PROTEIN - SERUM 8.7 g/dL (6.4-8.2); SODIUM 138 mmol/L (136-145); UREA NITROGEN 15 mg/dL (7-18); eGFR NON AFRICAN AMERICAN > 90 mL/min (90-120)
[2019-05-27 15:19] LABS: APPEARANCE CLEAR (CLEAR); COLOR YELLOW (YELLOW)
[2019-05-27 15:20] LABS: BILIRUBIN NEGATIVE (NEGATIVE); GLUCOSE NEGATIVE (NEGATIVE); KETONE NEGATIVE (NEGATIVE); NITRITE NEGATIVE (NEGATIVE); PROTEIN TRACE mg/dL (NEGATIVE); UROBILINOGEN NORMAL (NORMAL)
[2019-05-27 16:12] VITALS: BP 132/86
== END 2019-05-27 17:05 | disposition home or self-care (01) ==
LOC: D.ER 14:09
PROVIDERS: Family Medicine
DX: D63.8 Anemia in other chronic diseases classified elsewhere (principal)

== ENCOUNTER 2019-06-15 20:20 | Emergency (ER) | payer MEDICAID ==
[~2019-06-15] VITALS: Ht 182.9 cm; Wt 53.2 kg
[2019-06-15 20:26] VITALS: Ht 182.9 cm; Wt 53.2 kg
[2019-06-15 20:47] LABS: BASOPHILS 0 % (0-2); EOSINOPHILS 0.2 % (0-7); HEMATOCRIT 27.4 % (42.0-54.0); HEMOGLOBIN 9.1 g/dL (13.5-17.5); IMMATURE GRANULOCYTES 0.3 % (0-5); LYMPHOCYTES 7.5 % (15-50); MCH 29.9 pg (26.0-34.0); MCHC 33.2 g/dL (31.0-37.0); MCV 90.1 fL (80.0-100.0); MEAN PLATELET VOLUME 9.1 fL (7.4-10.4); MONOCYTES 11.1 % (2-11); NEUTROPHILS 80.9 % (40-80); PLATELET COUNT 336 10x3/uL (130-400); RBC 3.04 10x6/uL (4.20-6.10); RDW 16.1 % (11.5-14.5); WBC 8.6 10x3/uL (4.8-10.8)
[2019-06-15 21:00] LABS: INR 1.32 (0.85-1.17); PROTIME 15.9 SECONDS (11.6-15.0)
[2019-06-15 21:09] LABS: APTT 51.9 SECONDS (22.8-39.4)
[2019-06-15 21:18] LABS: ALBUMIN 2.4 g/dL (3.4-5.0); ALKALINE PHOSPHATASE 78 U/L (46-116); ALT (SGPT) 12 U/L (10-68); BILIRUBIN - TOTAL 0.26 mg/dL (0.2-1.3); CALC OSMOLALITY 274 mosm/kg (275-300); CARBON DIOXIDE 26.6 mmol/L (21.0-32.0); CHLORIDE - SERUM 104 mmol/L (98-107); CKMB 0.4 U/L (0.0-3.6); CREATINE KINASE 24 UL (21-232); CREATININE - SERUM 0.9 mg/dL (0.6-1.3); GLUCOSE 101 mg/dL (74-106); MAGNESIUM - SERUM 1.6 mg/dL (1.8-2.4); POTASSIUM - SERUM 3.9 mmol/L (3.5-5.1); PROTEIN - SERUM 7.8 g/dL (6.4-8.2); SODIUM 137 mmol/L (136-145); UREA NITROGEN 15 mg/dL (7-18); eGFR NON AFRICAN AMERICAN > 90 mL/min (90-120)
[2019-06-15 21:20] LABS: TROPONIN-I < 0.017 ng/mL (0.000-0.060)
[2019-06-15 23:45] VITALS: BP 122/89
== END 2019-06-15 23:46 | disposition home or self-care (01) ==
LOC: D.ER 20:20
PROVIDERS: Family Medicine
DX: B20 Human immunodeficiency virus [HIV] disease (principal); D63.8 Anemia in other chronic diseases classified elsewhere; R07.9 Chest pain, unspecified

== ENCOUNTER 2019-07-04 18:11 | Emergency (ER) | payer MEDICAID ==
[~2019-07-04] VITALS: Ht 182.9 cm; Wt 50.0 kg
[2019-07-04 18:16] VITALS: Ht 182.9 cm; Wt 50.0 kg
[2019-07-04] MEDS ORDERED: [UNRECOGNIZED DRUG - OTHER] (18:18)
[2019-07-04 18:53] LABS: BASOPHILS 0 % (0-2); EOSINOPHILS 0.1 % (0-7); HEMATOCRIT 29.2 % (42.0-54.0); HEMOGLOBIN 9.7 g/dL (13.5-17.5); IMMATURE GRANULOCYTES 0.3 % (0-5); LYMPHOCYTES 7.6 % (15-50); MCH 29.8 pg (26.0-34.0); MCHC 33.2 g/dL (31.0-37.0); MCV 89.6 fL (80.0-100.0); MEAN PLATELET VOLUME 9.8 fL (7.4-10.4); MONOCYTES 11.2 % (2-11); NEUTROPHILS 80.8 % (40-80); PLATELET COUNT 362 10x3/uL (130-400); RBC 3.26 10x6/uL (4.20-6.10); RDW 16.4 % (11.5-14.5); WBC 7.1 10x3/uL (4.8-10.8)
[2019-07-04 19:11] LABS: ALBUMIN 2.4 g/dL (3.4-5.0); ALKALINE PHOSPHATASE 81 U/L (46-116); ALT (SGPT) 9 U/L (10-68); BILIRUBIN - TOTAL 0.24 mg/dL (0.2-1.3); CALC OSMOLALITY 280 mosm/kg (275-300); CALCIUM 8.6 mg/dL (8.5-10.1); CARBON DIOXIDE 22.2 mmol/L (21.0-32.0); CHLORIDE - SERUM 107 mmol/L (98-107); CREATININE - SERUM 1.1 mg/dL (0.6-1.3); GLUCOSE 91 mg/dL (74-106); POTASSIUM - SERUM 4.1 mmol/L (3.5-5.1); PROTEIN - SERUM 8.8 g/dL (6.4-8.2); SODIUM 138 mmol/L (136-145); UREA NITROGEN 26 mg/dL (7-18); eGFR NON AFRICAN AMERICAN 78 mL/min (90-120)
[2019-07-04 19:17] LABS: AMYLASE - SERUM 92 U/L (25-115); LIPASE 200 U/L (73-393); TROPONIN-I < 0.017 ng/mL (0.000-0.060)
[2019-07-04 19:58] LABS: CKMB 0.4 U/L (0.0-3.6); CREATINE KINASE 33 UL (21-232)
[2019-07-04 20:38] LABS: UDS - AMPHET NEGATIVE QUAL (NEGATIVE); UDS - BARB NEGATIVE QUAL (NEGATIVE); UDS - BENZO NEGATIVE QUAL (NEGATIVE); UDS - COCAINE POSITIVE QUAL (NEGATIVE); UDS - OPIATE NEGATIVE QUAL (NEGATIVE); UDS - PCP NEGATIVE QUAL (NEGATIVE); UDS - THC NEGATIVE QUAL (NEGATIVE)
[2019-07-04 20:41] LABS: APPEARANCE CLEAR (CLEAR); BILIRUBIN NEGATIVE (NEGATIVE); COLOR YELLOW (YELLOW); GLUCOSE NEGATIVE (NEGATIVE); KETONE NEGATIVE (NEGATIVE); NITRITE NEGATIVE (NEGATIVE); PROTEIN TRACE mg/dL (NEGATIVE); UROBILINOGEN NORMAL (NORMAL)
[2019-07-04 23:15] VITALS: BP 130/97
== END 2019-07-04 23:05 | disposition home or self-care (01) ==
LOC: D.ER 18:11
PROVIDERS: Emergency Medicine; Family Medicine
DX: B20 Human immunodeficiency virus [HIV] disease (principal); F17.210 Nicotine dependence, cigarettes, uncomplicated

== ENCOUNTER 2019-07-12 23:13 | Inpatient (IN) | payer MEDICAID ==
[~2019-07-12] VITALS: Ht 182.9 cm; Wt 51.7 kg
[~2019-07-12 23:13] MED LIST changes: +[UNRECOGNIZED DRUG - OTHER]
[2019-07-12] MEDS ORDERED: SYMTUZA (23:21)
[2019-07-12] MEDS ORDERED: METOPROLOL TART50 MG PO (23:22)
[2019-07-13 00:10] LABS: BASOPHILS 0.1 % (0-2); EOSINOPHILS 0.4 % (0-7); HEMATOCRIT 33.4 % (42.0-54.0); HEMOGLOBIN 11.1 g/dL (13.5-17.5); IMMATURE GRANULOCYTES 0.5 % (0-5); LYMPHOCYTES 8.9 % (15-50); MCH 29.2 pg (26.0-34.0); MCHC 33.2 g/dL (31.0-37.0); MCV 87.9 fL (80.0-100.0); MEAN PLATELET VOLUME 9.5 fL (7.4-10.4); MONOCYTES 12.7 % (2-11); NEUTROPHILS 77.4 % (40-80); PLATELET COUNT 328 10x3/uL (130-400); RDW 17.1 % (11.5-14.5); WBC 8.4 10x3/uL (4.8-10.8)
[2019-07-13 00:38] LABS: BILIRUBIN - TOTAL 0.53 mg/dL (0.2-1.3); PROTEIN - SERUM 8.3 g/dL (6.4-8.2)
[2019-07-13 00:39] LABS: CALCIUM 8.6 mg/dL (8.5-10.1); CREATININE - SERUM 1.8 mg/dL (0.6-1.3)
[2019-07-13 00:40] LABS: ALBUMIN 2.4 g/dL (3.4-5.0); ANION GAP 15.9 mmol/L (8-16); POTASSIUM - SERUM 3.9 mmol/L (3.5-5.1)
[2019-07-13 02:25] VITALS: BP 138/97; BMI 15.5
--- NOTE | 2019-07-13 02:44 | NUR ---
RECIEVED REPORT FROM TANISHA RN IN ER. ARRIVED TO FLOOR IN W/C AT 0158. TRANSFERED SELF TO BED. IV TO RIGHT HAND WITH NS INFUSING AT 125/HR. ALERT AND ORIENTED X4. UP AD RICARDA. DENIES ANY NEEDS AT THIS TIME.
[2019-07-13 07:40] VITALS: BP 117/76
[2019-07-13 11:50] LABS: % SATURATION 21 % (15-55); IRON 36 ug/dl (35-150); TOTAL IRON BIND CAPACITY 167 ug/dl (260-445); UNSAT IRON BIND CAPACITY 131 ug/dl (150-375)
--- NOTE | 2019-07-13 11:53 | NUR ---
INFORMED PT ABOUT NEED FOR URINE AND STOOL SAMPLE, COLLECTION HAT AND URINAL PLACED IN BATHROOM. COLLECTION CUPS AT BEDSIDE, PT VERBALIZED UNDERSTANDING. STATED ALL HE WANTS TO DO RIGHT NOW IS SLEEP. PT DENIES ANY OTHER NEEDS AT THIS TIME. CALL LIGHT IN REACH, NAD NOTED, WILL CONTINUE TO MONITOR.
[2019-07-13 11:59] VITALS: BP 120/75
[2019-07-13 13:21] LABS: APPEARANCE CLEAR (CLEAR); BILIRUBIN NEGATIVE (NEGATIVE); COLOR DK YELLOW (YELLOW); GLUCOSE NEGATIVE (NEGATIVE); KETONE NEGATIVE (NEGATIVE); NITRITE NEGATIVE (NEGATIVE); PROTEIN 1+ mg/dL (NEGATIVE); SPECIFIC GRAVITY 1.015 (1.005-1.020); UROBILINOGEN NORMAL (NORMAL)
--- NOTE | 2019-07-13 13:36 | NUR ---
CALLED PHARMACY AND INFORMED DEANN THAT I NEED ONCOLOGY MOUTHWASH FOR PT.
[2019-07-13 13:39] LABS: UDS - AMPHET NEGATIVE QUAL (NEGATIVE); UDS - BARB NEGATIVE QUAL (NEGATIVE); UDS - BENZO NEGATIVE QUAL (NEGATIVE); UDS - COCAINE POSITIVE QUAL (NEGATIVE); UDS - OPIATE NEGATIVE QUAL (NEGATIVE); UDS - PCP NEGATIVE QUAL (NEGATIVE); UDS - THC NEGATIVE QUAL (NEGATIVE)
--- NOTE | 2019-07-13 14:29 | NUR ---
PT RESTING COMFORTABLY IN BED, DENIES ANY NEEDS AT THIS TIME. CALL LIGHT IN REACH, NAD NOTED, WILL CONTINUE TO MONITOR.
[2019-07-13 16:04] VITALS: BP 131/88
--- NOTE | 2019-07-13 18:31 | NUR ---
PT IN BED, EATING DINNER, DENIES ANY NEEDS AT THIS TIME. FAMILY AT BEDSIDE, NAD NOTED, CALL LIGHT IN REACH.
[2019-07-13 20:26] VITALS: BP 132/83
[2019-07-14 01:06] VITALS: BP 131/79
[2019-07-14 04:15] VITALS: BP 136/86
[2019-07-14 06:23] LABS: BASOPHILS 0 % (0-2); EOSINOPHILS 0.5 % (0-7); HEMATOCRIT 27.9 % (42.0-54.0); HEMOGLOBIN 9.1 g/dL (13.5-17.5); IMMATURE GRANULOCYTES 0.2 % (0-5); LYMPHOCYTES 6.1 % (15-50); MCH 29.3 pg (26.0-34.0); MCHC 32.6 g/dL (31.0-37.0); MCV 89.7 fL (80.0-100.0); MEAN PLATELET VOLUME 10.2 fL (7.4-10.4); MONOCYTES 10.9 % (2-11); NEUTROPHILS 82.3 % (40-80); PLATELET COUNT 377 10x3/uL (130-400); RBC 3.11 10x6/uL (4.20-6.10); RDW 18.1 % (11.5-14.5); WBC 9.3 10x3/uL (4.8-10.8)
[2019-07-14 06:39] LABS: ALBUMIN 1.9 g/dL (3.4-5.0); ALKALINE PHOSPHATASE 69 U/L (46-116); BILIRUBIN - TOTAL 0.26 mg/dL (0.2-1.3); CALCIUM 7.5 mg/dL (8.5-10.1); CHLORIDE - SERUM 111 mmol/L (98-107); GLUCOSE 80 mg/dL (74-106); MAGNESIUM - SERUM 1.6 mg/dL (1.8-2.4); PROTEIN - SERUM 6.9 g/dL (6.4-8.2); SODIUM 138 mmol/L (136-145)
[2019-07-14 06:45] LABS: ALT (SGPT) 7 U/L (10-68); CALC OSMOLALITY 276 mosm/kg (275-300); CREATININE - SERUM 0.9 mg/dL (0.6-1.3); POTASSIUM - SERUM 3.3 mmol/L (3.5-5.1); UREA NITROGEN 17 mg/dL (7-18); eGFR NON AFRICAN AMERICAN > 90 mL/min (90-120)
--- NOTE | 2019-07-14 07:10 | NUR ---
REPORT RECIEVED FROM TIGHT COOPER AND PATIENT CARE ASSUMED. PATIENT LAYING IN BED WITH EYES CLOSED AND BREATHING EVENLY. PATIENT AROUSES EASILY TO VOICE. VSS. PATIENT DENIES ANY NEEDS OR PAIN. WILL CONTINUE WITH PLAN OF CARE. SR UP X 2 BED IN LOW POSITION AND CALL LIGHT IN REACH.
[2019-07-14 08:17] VITALS: BP 119/80
--- NOTE | 2019-07-14 09:00 | NUR ---
PATIENT HAVING MULTIPLE WATERY, EXTREMELY FOUL SMELLING DIARRHEA. PATIENT DENIES ABD PAIN. STOOL SUBMITTED FOR C DIF,OVA AND PARASITES PER ORDER. WILL CONTINUE TO MONITOR. SR UP X 2 BED IN LOW POSITION AND CALL LIGHT IH REACH.
--- NOTE | 2019-07-14 11:20 | MORECARE ---
CASE MANAGEMENT DISCHARGE SUMMARY PATIENT: DEJAH BALDWIN UNIT: [id number] ADM DATE: 07/13/19 AGE: 43 : 75 SEX: M ROOM/BED: D.1208 AUTHOR: ARASELI CISNEROS PHYSICIAN: REFERRING PHYSICIAN: JANE RUANO DO DATE OF SERVICE: 07/14/19 Discharge Plan Patient Name: DEJAH BALDWIN [facility] [facility] 1975 Planned Disposition: Home Anticipated Discharge Date: Discharge Date: Expected LOS: Initial Reviewer: [email or web address] Initial Review Date: 07/14/2019 Generated: 07/14/19 12:19 pm Patient Name: DEJAH BALDWIN Page 66829 at 1120 All edits/amendments must be made on the electronic document DICTATION DATE: 07/14/19 1119 RAND CEMENTER: JORI 07/14/19 1119 RPT#: [id number] DC DATE: STATUS: ADM IN [facility] [address] [place] [address] END OF REPORT
--- NOTE | 2019-07-14 11:27 | MORECARE ---
CASE MANAGEMENT DISCHARGE SUMMARY PATIENT: DEJAH BALDWIN UNIT: [id number] ADM DATE: 07/13/19 AGE: 43 : 75 SEX: M ROOM/BED: D.1208 AUTHOR: ARASELI CISNEROS PHYSICIAN: REFERRING PHYSICIAN: JANE RUANO DO DATE OF SERVICE: 07/14/19 Discharge Plan Patient Name: DEJAH BALDWIN Facility: [facility]:[place] : 1975 Planned Disposition: Home Anticipated Discharge Date: Discharge Date: Expected LOS: Initial Reviewer: [email or web address] Initial Review Date: 07/14/2019 Generated: 07/14/19 12:27 pm Comments DCP- Discharge Planning Updated by [email or web address]: Isabella Lehman on 07/14/19 10:[address] Patient Name: DEJAH BALDWIN Admission Status: ER Accout number: [id number] Admission Date: 07-13-2019 : 1975 Admission Diagnosis: Attending: JANE RUANO Current LOS: 1 Anticipated DC Date: Planned Disposition: Home Primary Insurance: MEDICAID [place] Discharge Planning Comments: CM MET WITH PATIENT ABOUT DC PLANNING/NEEDS. STATES IS INDEPENDANT AND NO NEEDS AT THIS TIME. HE WOULD LIKE US TO CHECK BACK WITH HIM CLOSER TO DC. CM WILL FOLLOW AND ASSIST. Air Crew Officer: Isabella Lehman DCPIA - Discharge Planning Initial Assessment Updated by [email or web address]: Isabella Lehman on 07/14/19 11:20 am * Is the patient Alert and Oriented? Yes * Pharmacy [facility] * ADLs Independent * Equipment None * List name and contact numbers for known caregivers / representatives who currently or will assist patient after discharge: VERNON LINDA, MOTHER, * Community resources currently utilized None Last DP export: 07/14/19 10:20 a Patient Name: DEJAH BALDWIN Page 21801 at 1127 All edits/amendments must be made on the electronic document DICTATION DATE: 07/14/19 112 COIN COLLECTOR: JORI 07/14/19 1127 RPT#: [id number] DC DATE: STATUS: ADM IN [facility] [address] [facility] [place] [address] END OF REPORT
[2019-07-14 13:14] VITALS: Ht 182.9 cm; Wt 51.7 kg
--- NOTE | 2019-07-14 14:51 | NUR ---
PATIENT RESTING QUIETLY IN BED. HAS LEFT TO GO HOME.PATIENT IS STABLE AND VSS. PATIENT DENIES ANY NEEDS OR PAIN. WILL CONTINUE TO MONITOR. SR UP X 2 BED IN LOW POSITION AND CALL LIGHT IN REACH.
--- NOTE | 2019-07-14 14:56 | NUR ---
PATIENT RESTING QUIETLY IN BED WITH EYES CLOSED AND BREATHING EVENLY. WILL CONTINUE TO MONITOR. SR UP X 2 BED IN LOW POSITION AND CALL LIGHT IN REACH.
[2019-07-14 16:00] VITALS: BP 133/82
[2019-07-14 19:09] VITALS: BP 133/86
--- NOTE | 2019-07-14 19:34 | NUR ---
EVENING ROUNDS COMPLETED. VSS, AAOX3, NO S/S OF DISTRESS. PT C/O ORAL DISCOMFORT, AND DIFFICULTY SWALLOWING. NOTIFIED PT THAT HIS NEXT ONCOLOGY MOUTH WASH IS DUE AT 2100. PT VOICED THANKS. PARENT AT BEDSIDE. PT DENIES ANY FURTHER NEEDS AT THIS TIME. WILL CPOC. CL WITHIN REACH.
[2019-07-14 23:32] VITALS: BP 132/84
[2019-07-15 03:52] VITALS: BP 134/83
[2019-07-15 06:43] LABS: BASOPHILS 0 % (0-2); EOSINOPHILS 0.5 % (0-7); HEMATOCRIT 26.1 % (42.0-54.0); HEMOGLOBIN 8.5 g/dL (13.5-17.5); IMMATURE GRANULOCYTES 0.4 % (0-5); LYMPHOCYTES 6.3 % (15-50); MCH 29.1 pg (26.0-34.0); MCHC 32.6 g/dL (31.0-37.0); MCV 89.4 fL (80.0-100.0); MONOCYTES 12.7 % (2-11); NEUTROPHILS 80.1 % (40-80); PLATELET COUNT 360 10x3/uL (130-400); RBC 2.92 10x6/uL (4.20-6.10); RDW 17.8 % (11.5-14.5); WBC 7.5 10x3/uL (4.8-10.8)
--- NOTE | 2019-07-15 06:55 | NUR ---
REPORT RECEIVED FROM ELECTRONICS PRODUCTION SUPERVISOR AND PATIENT CARE ASSUMED. PATIENT LAYING IN BED ON LEFT SIDE WITH EYES CLOSED AND BREATHING EVENLY. WILL CONTINUE WITH PLAN OF CARE. SR UP X 2 BED IN LOW POSITION AND CALL LIGHT IN REACH.
--- NOTE | 2019-07-15 07:01 | NUR ---
REPORT RECEIVED FROM ARRANGING FUNERAL DIRECTOR AND PATIENT CARE ASSUMED. PATIENT LAYING IN BED ON LEFT SIDE WITH EYES CLOSED AND BREATHING EVENLY. WILL CONTINUE WITH PLAN OF CARE. SR UP X 2 BED IN LOW POSITION AND CALL LIGHT IN REACH.
[2019-07-15 07:02] LABS: ALBUMIN 1.6 g/dL (3.4-5.0); ALKALINE PHOSPHATASE 57 U/L (46-116); ALT (SGPT) 8 U/L (10-68); BILIRUBIN - TOTAL 0.25 mg/dL (0.2-1.3); CALC OSMOLALITY 277 mosm/kg (275-300); CHLORIDE - SERUM 114 mmol/L (98-107); CREATININE - SERUM 0.9 mg/dL (0.6-1.3); GLUCOSE 83 mg/dL (74-106); MAGNESIUM - SERUM 1.4 mg/dL (1.8-2.4); POTASSIUM - SERUM 3.4 mmol/L (3.5-5.1); PROTEIN - SERUM 5.6 g/dL (6.4-8.2); SODIUM 139 mmol/L (136-145); UREA NITROGEN 14 mg/dL (7-18); eGFR NON AFRICAN AMERICAN > 90 mL/min (90-120)
[2019-07-15 07:03] LABS: CARBON DIOXIDE 13.1 mmol/L (21.0-32.0)
[2019-07-15 08:02] VITALS: BP 130/71
--- NOTE | 2019-07-15 09:10 | NUR ---
PATIENT UP TO BR. HAD LARGE WATERY STOOL. GAVE PATIENT ROUTINE MEDS WELL K+ AND MAG SUPPLEMENT PER PROTOCOL. PATTIENT IS STABLE AND VSS. PATIENT DENIES ANY NEEDS OR PAIN. WILL CONTINUE WITH PLAN OF CARE. SR UP X 2 BED IN LOW POSITION AND CALL LIGHT IN REACH.
--- NOTE | 2019-07-15 16:23 | MORECARE ---
CASE MANAGEMENT DISCHARGE SUMMARY PATIENT: DEJAH BALDWIN UNIT: [id number] ADM DATE: 07/13/19 AGE: 43 : 75 SEX: M ROOM/BED: D.1208 AUTHOR: ARASELI CISNEROS PHYSICIAN: REFERRING PHYSICIAN: JANE RUANO DO DATE OF SERVICE: 07/15/19 Discharge Plan Patient Name: DEJAH BALDWIN Facility: [facility]:[place] : 1975 Planned Disposition: Home Anticipated Discharge Date: Discharge Date: Expected LOS: Initial Reviewer: [email or web address] Initial Review Date: 07/14/2019 Generated: 07/15/19 5:22 pm DCP- Discharge Planning Updated by [email or web address]: Isabella Lehman on 07/14/19 10:[address] Patient Name: DEJAH BALDWIN Admission Status: ER Accout number: [id number] Admission Date: 07-13-2019 : 1975 Admission Diagnosis: Attending: JANE RUANO Current LOS: 1 Anticipated DC Date: Planned Disposition: Home Primary Insurance: MEDICAID [place] Discharge Planning Comments: CM MET WITH PATIENT ABOUT DC PLANNING/NEEDS. STATES IS INDEPENDANT AND NO NEEDS AT THIS TIME. HE WOULD LIKE US TO CHECK BACK WITH HIM CLOSER TO DC. CM WILL FOLLOW AND ASSIST. Farmworker Egg Producing Farm: Isabella Lehman DCPIA - Discharge Planning Initial Assessment Updated by [email or web address]: Isabella Lehman on 07/14/19 11:20 am * Is the patient Alert and Oriented? Yes * Pharmacy [facility] * ADLs Independent * Equipment None * List name and contact numbers for known caregivers / representatives who currently or will assist patient after discharge: VERNON LINDA, MOTHER, * Community resources currently utilized None Last DP export: 07/14/19 10:27 a Patient Name: DEJAH BALDWIN Page 68475 at 1623 All edits/amendments must be made on the electronic document DICTATION DATE: 07/15/191621 CYLINDER PRESS OPERATOR APPRENTICE: JORI 07/15/191621 RPT#: [id number] DC DATE: STATUS: ADM IN [facility] [address] [place] [address] END OF REPORT
[2019-07-15 19:24] VITALS: BP 123/73
--- NOTE | 2019-07-15 19:35 | NUR ---
REPORT RECEIVED, WILL CONTINUE POC. PATIENT A/OX4, UP AD RICARDA. NO S/S OF DISTRESS OBSERVED, RR EVEN AND UNLABORED ON ROOM AIR. PATIENT LYING ON LEFT SIDE, DENIES NEEDS AT THIS TIME. CL IN REACH, BED LOCKED AND LOWERED. WILL CTM.
--- NOTE | 2019-07-15 20:38 | NUR ---
NEW IV STARTED TO RT FOREARM WITH 22G X4 ATTEMPTS. PATIENT TOLERATED WELL.
--- NOTE | 2019-07-15 21:20 | NUR ---
PATIENT UP TO BATHROOM, LINENS CHANGED. PATIENT DENIES FURTHER NEEDS AT THIS TIME.
[2019-07-16 00:04] VITALS: BP 144/93
[2019-07-16 04:00] VITALS: BP 145/90
--- NOTE | 2019-07-16 04:45 | NUR ---
PATIENT ASKED ABOUT WHEN, "GI SCOPE" IS GONNA BE PERFORMED TODAY. INFORMED PATIENT THERE ARE NOT ORDERS AT THE MOMENT AND HE WOULD BE NOTIFIED IF/WHEN SAID ORDERS ARE PUT IN.
[2019-07-16 07:07] LABS: BASOPHILS 0 % (0-2); EOSINOPHILS 0.4 % (0-7); HEMATOCRIT 24.5 % (42.0-54.0); HEMOGLOBIN 8.1 g/dL (13.5-17.5); IMMATURE GRANULOCYTES 0.4 % (0-5); LYMPHOCYTES 7.1 % (15-50); MCHC 33.1 g/dL (31.0-37.0); MCV 87.8 fL (80.0-100.0); MEAN PLATELET VOLUME 10.1 fL (7.4-10.4); MONOCYTES 14.3 % (2-11); NEUTROPHILS 77.8 % (40-80); PLATELET COUNT 344 10x3/uL (130-400); RBC 2.79 10x6/uL (4.20-6.10); RDW 17.6 % (11.5-14.5); WBC 7.3 10x3/uL (4.8-10.8)
--- NOTE | 2019-07-16 07:19 | NUR ---
PT RESTING, EYES CLOSED. RR EVEN AND UNLABORED. NO DISTRESS NOTED. WILL CONTINUE TO MONITOR.
[2019-07-16 07:50] LABS: ALBUMIN 1.4 g/dL (3.4-5.0); ALKALINE PHOSPHATASE 52 U/L (46-116); ALT (SGPT) 6 U/L (10-68); BILIRUBIN - TOTAL 0.27 mg/dL (0.2-1.3); CALC OSMOLALITY 270 mosm/kg (275-300); CARBON DIOXIDE 13.2 mmol/L (21.0-32.0); CHLORIDE - SERUM 110 mmol/L (98-107); CREATININE - SERUM 0.9 mg/dL (0.6-1.3); GLUCOSE 86 mg/dL (74-106); MAGNESIUM - SERUM 1.5 mg/dL (1.8-2.4); PROTEIN - SERUM 5.7 g/dL (6.4-8.2); SODIUM 136 mmol/L (136-145); UREA NITROGEN 12 mg/dL (7-18); eGFR NON AFRICAN AMERICAN > 90 mL/min (90-120)
--- NOTE | 2019-07-16 07:55 | NUR ---
PT SEEMS VERY AGGITATES THIS AM. STATES HE WANTS TO GO HOME. RENA HARKINS IS AWARE OF THIS.
[2019-07-16 08:01] LABS: CALCIUM 6.9 mg/dL (8.5-10.1)
[2019-07-16] MEDS ORDERED: DIFLUCAN200 MG PO (09:46)
--- NOTE | 2019-07-16 09:55 | NUR ---
Nutrition Follow-up: Diet: Regular + Ensure with meals PO intake: 63% average x 6 meals recorded Labs, meds, and skin assessment reviewed Last BM 07/16/19 x 2. Admit wt: 112.8# (07/12/19); chart review wt of 133# (12/16/18)-- both are standing/bedscale wts. This is a -15% wt loss x 7 months. Physical assessment completed on pt today. Pt presents with muscle wasting: hollow/scooping depression of temporal area, protruding/prominent clavicle, thin/loose skin with minimal muscle definition to bicep/triceps, and thin/loose skin with minimal muscle definition to calfs. Pt also presents with noted loss of subcutaneous fat: hollowing of orbital area with minimal to no fat noted to tricept. 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 Continue regular diet and Ensure with meals. Encouraged PO intake. RD Following
--- NOTE | 2019-07-16 10:01 | NUR ---
PT STATED HE NEED TO GO OUTSIDE AND DROP A BAG OFF WITH HIS COUSIN. PT ESCOURTED BY ME, VIA WHEELCHAIR TO THE FRONT OF HOSPITAL. WAITED WITH PT FOR APPROX. 15 MINUTES WHEN COUSIN SHOWED UP. PT ATTEMPTED TO GET IN THE CAR WITH COUSIN. WAS PROMTLY INSTRUCTED THAT HE COULD NOT GET IN THE CAR OR LEAVE FACILITY WITH THE IV IN. HE THEN STATED HE WANTED TO GET THE IV OUT SO HE COULD GO. WHEN CLARIFYING IF HE WANTED TO LEAVE AMA, HE STATED YES. ATTEMPTED TWICE TO EXPLAIN THE RISKS OF LEAVING AMA, PT STATED HE ALREADY KNEW THE RISKS AND STILL WANTED TO LEAVE. RENA HARKINS NOTIFIED OF REQUEST AND SAID SHE WOULD JUST D/C PATIENT WITH REPLACEMENT OF MAGNESIUM AND POTASSIUM. MAGNESIUM IV ORDERED. PT INSISTED ON HIS IV OUT. RENA HARKINS ALSO NOTIFIED OF THIS AND VERBAL ORDERS WERE RECIEVED TO REPLACE MAGNESIUM WITH PO INSTEAD OF IV PER PROTOCOL. REFUSED ALL OTHER MEDICATIONS THIS MORNING. D/C IV TO RIGHT FOREARM WITH CATHETER TIP INTACT. DRESSING PLACED OVER SITE, CDI. D/C INSTRUCTIONS SIGNED, VERBALIZED UNDERSTANDING. PT LEFT WITH ALL BELONGINGS VIA WHEELCHAIR.
--- NOTE | 2019-07-16 11:41 | MORECARE ---
CASE MANAGEMENT DISCHARGE SUMMARY PATIENT: DEJAH BALDWIN UNIT: [id number] ADM DATE: 07/13/19 AGE: 43 : 75 SEX: M ROOM/BED: D.1208 AUTHOR: ARASELI CISNEROS PHYSICIAN: REFERRING PHYSICIAN: JANE RUANO DO DATE OF SERVICE: 07/16/19 Discharge Plan Patient Name: DEJAH BALDWIN Facility: [facility]:[place] : 1975 Planned Disposition: Home Anticipated Discharge Date: Discharge Date: 07/16/2019 Expected LOS: Initial Reviewer: [email or web address] Initial Review Date: 07/14/2019 Generated: 07/16/19 12:41 pm DCP- Discharge Planning Updated by [email or web address]: Isabella Lehman on 07/14/19 10:[address] Patient Name: DEJAH BALDWIN Admission Status: ER Accout number: [id number] Admission Date: 07-13-2019 : 1975 Admission Diagnosis: Attending: JANE RUANO Current LOS: 1 Anticipated DC Date: Planned Disposition: Home Primary Insurance: MEDICAID [place] Discharge Planning Comments: CM MET WITH PATIENT ABOUT DC PLANNING/NEEDS. STATES IS INDEPENDANT AND NO NEEDS AT THIS TIME. HE WOULD LIKE US TO CHECK BACK WITH HIM CLOSER TO DC. CM WILL FOLLOW AND ASSIST. Anesthesiology Faculty: Isabella Lehman DCPIA - Discharge Planning Initial Assessment Updated by [email or web address]: Isabella Lehman on 07/14/19 11:20 am * Is the patient Alert and Oriented? Yes * Pharmacy [facility] * ADLs Independent * Equipment None * List name and contact numbers for known caregivers / representatives who currently or will assist patient after discharge: VERNON LINDA, MOTHER, * Community resources currently utilized None Last DP export: 07/15/19 3:23 p Patient Name: DEJAH BALDWIN Page 04804 at 1141 All edits/amendments must be made on the electronic document DICTATION DATE: 07/16/19 1140 ELECTRIC LOCOMOTIVE FIRER/FIREMAN: JROI 07/16/19 1140 RPT#: [id number] DC DATE:07/16/19 STATUS: DIS IN [facility] [address] [place] [address] END OF REPORT
[2019-07-17 18:08] LABS: OVA + PARASITE EXAM Final report (())
== END 2019-07-16 10:40 | disposition home or self-care (01) | DRG 974 ==
LOC: D.ER 23:13 → OBSVTIME 07-13 01:15 → D.M3 07-13 01:15
PROVIDERS: Family Medicine; Internal Medicine Nephrology; ADMIT Family Medicine; ATTEND Family Medicine
DX: B20 Human immunodeficiency virus [HIV] disease (principal); E43 Unspecified severe protein-calorie malnutrition; B37.81 Candidal esophagitis; N17.9 Acute kidney failure, unspecified; Z68.1 Body mass index [BMI] 19.9 or less, adult; F17.213 Nicotine dependence, cigarettes, with withdrawal; G40.909 Epilepsy, unspecified, not intractable, without status epilepticus; I10 Essential (primary) hypertension; F14.90 Cocaine use, unspecified, uncomplicated

== ENCOUNTER 2019-07-18 20:38 | Observation (INO) | payer MEDICAID ==
[~2019-07-18] VITALS: Ht 182.9 cm; Wt 51.7 kg
[~2019-07-18 20:38] MED LIST changes: +SYMTUZA
[2019-07-18] MEDS ORDERED: TRIUMEQ TABLET1 EACH PO (20:47)
[2019-07-18] MEDS ORDERED: SYMTUZA PO (20:50)
[2019-07-18] MEDS ORDERED: [UNRECOGNIZED DRUG - OTHER] PO (20:50)
[2019-07-18 21:02] LABS: BASOPHILS 0 % (0-2); EOSINOPHILS 0.4 % (0-7); HEMOGLOBIN 7.7 g/dL (13.5-17.5); IMMATURE GRANULOCYTES 0.3 % (0-5); LYMPHOCYTES 5.7 % (15-50); MCH 29.3 pg (26.0-34.0); MCHC 33.5 g/dL (31.0-37.0); MCV 87.5 fL (80.0-100.0); MEAN PLATELET VOLUME 9.1 fL (7.4-10.4); MONOCYTES 12.1 % (2-11); NEUTROPHILS 81.5 % (40-80); PLATELET COUNT 364 10x3/uL (130-400); RBC 2.63 10x6/uL (4.20-6.10)
[2019-07-18 21:17] LABS: ALBUMIN 1.6 g/dL (3.4-5.0); ALKALINE PHOSPHATASE 57 U/L (46-116); ALT (SGPT) 6 U/L (10-68); BILIRUBIN - TOTAL 0.23 mg/dL (0.2-1.3); CALC OSMOLALITY 282 mosm/kg (275-300); CALCIUM 7.2 mg/dL (8.5-10.1); CHLORIDE - SERUM 112 mmol/L (98-107); GLUCOSE 110 mg/dL (74-106); LIPASE 212 U/L (73-393); MAGNESIUM - SERUM 1.5 mg/dL (1.8-2.4); PROTEIN - SERUM 6.4 g/dL (6.4-8.2); SODIUM 141 mmol/L (136-145); UREA NITROGEN 15 mg/dL (7-18); eGFR NON AFRICAN AMERICAN 87 mL/min (90-120)
[2019-07-18 21:21] LABS: POTASSIUM - SERUM 2.9 mmol/L (3.5-5.1)
--- NOTE | 2019-07-18 21:39 | NUR ---
BLOOD CONSENT FORMS SIGNED BY PT
[2019-07-18 21:45] LABS: APPEARANCE CLEAR (CLEAR); BILIRUBIN NEGATIVE (NEGATIVE); COLOR YELLOW (YELLOW); GLUCOSE NEGATIVE (NEGATIVE); KETONE NEGATIVE (NEGATIVE); NITRITE NEGATIVE (NEGATIVE); PROTEIN 1+ mg/dL (NEGATIVE); UROBILINOGEN NORMAL (NORMAL)
--- NOTE | 2019-07-18 21:50 | NUR ---
PT MOVED TO TRAUMA ROOM 4 FOR CENTRAL LINE PLACEMENT
[2019-07-18 21:57] LABS: UDS - AMPHET NEGATIVE QUAL (NEGATIVE); UDS - BARB NEGATIVE QUAL (NEGATIVE); UDS - BENZO NEGATIVE QUAL (NEGATIVE); UDS - COCAINE POSITIVE QUAL (NEGATIVE); UDS - OPIATE NEGATIVE QUAL (NEGATIVE); UDS - PCP NEGATIVE QUAL (NEGATIVE); UDS - THC NEGATIVE QUAL (NEGATIVE)
--- NOTE | 2019-07-18 21:57 | NUR ---
CONSENT FORM SIGNED BY PT FOR CENTRAL LINE PLACEMENT BY EDChris TELLO
--- NOTE | 2019-07-18 22:43 | NUR ---
PLACEMENT UNSUCCESSFUL, NOTIFIED SURGEON SILVER RECOVERY OPERATOR. PT AND FAMILY INFORMED, PT STILL CONSENTS TO PROCEDURE
--- NOTE | 2019-07-18 23:16 | NUR ---
PER DR AYALA PT CENTRAL LINE TO L SUBCLAVIAN IS GOOD TO USE.
--- NOTE | 2019-07-18 23:18 | NUR ---
CENTRAL LINE PLACED BY DR. AYALA. PT TOLERATED FAIR
--- NOTE | 2019-07-18 23:25 | NUR ---
FIRST UNIT OF BLOOD INFUSING. UNIT CHECKED WITH SUNNY LUNA.
[2019-07-19 04:00] VITALS: BP 122/77
[2019-07-19 05:58] LABS: BASOPHILS 0 % (0-2); EOSINOPHILS 0.8 % (0-7); HEMOGLOBIN 8.6 g/dL (13.5-17.5); IMMATURE GRANULOCYTES 0.4 % (0-5); LYMPHOCYTES 5.3 % (15-50); MCH 28.9 pg (26.0-34.0); MCHC 33.1 g/dL (31.0-37.0); MCV 87.2 fL (80.0-100.0); MEAN PLATELET VOLUME 9.9 fL (7.4-10.4); MONOCYTES 11.2 % (2-11); NEUTROPHILS 82.3 % (40-80); PLATELET COUNT 333 10x3/uL (130-400); RBC 2.98 10x6/uL (4.20-6.10); WBC 7.7 10x3/uL (4.8-10.8)
[2019-07-19 06:31] VITALS: BP 135/84; BMI 15.5
[2019-07-19 06:32] LABS: ALBUMIN 1.5 g/dL (3.4-5.0); ALKALINE PHOSPHATASE 55 U/L (46-116); ALT (SGPT) 7 U/L (10-68); BILIRUBIN - TOTAL 0.28 mg/dL (0.2-1.3); CALCIUM 7.5 mg/dL (8.5-10.1); CARBON DIOXIDE 20.4 mmol/L (21.0-32.0); CHLORIDE - SERUM 115 mmol/L (98-107); CREATININE - SERUM 0.8 mg/dL (0.6-1.3); GLUCOSE 99 mg/dL (74-106); PROTEIN - SERUM 6.1 g/dL (6.4-8.2); SODIUM 144 mmol/L (136-145); eGFR NON AFRICAN AMERICAN > 90 mL/min (90-120)
[2019-07-19 06:39] LABS: CALC OSMOLALITY 288 mosm/kg (275-300); POTASSIUM - SERUM 3.8 mmol/L (3.5-5.1); UREA NITROGEN 19 mg/dL (7-18)
--- NOTE | 2019-07-19 07:00 | NUR ---
RECEIVED REPORT. ASSUMED CARE OF PATIENT. PATIENT RESTING IN BED WITH EYES CLOSED. PATIENT RECEIVING 2ND UNIT OF PRBCs AT THIS TIME. EASILY AROUSED. RESP EVEN AND UNLABORED. TOELRATING TRANSFUSION WELL. CALL LIGHT WITHIN REACH. PATIENTS MOM AT BEDSIDE. NO DISTRESS.
[2019-07-19 08:45] VITALS: BMI 15.4
[2019-07-19 09:22] VITALS: BP 132/85
--- NOTE | 2019-07-19 09:31 | NUR ---
TOLERATED BLOOD TRANSFUSION WELL. RESTING WITH EYES CLOSED. BLOOD TRANSFUSION NEAR COMPLETE, FLUSHING LINES WITH SALINE. BP 129/83. CALL LIGHT WITHIN REACH. RESP EVEN AND UNLABORED. NO DISTRESS.
[2019-07-19 13:47] VITALS: Ht 182.9 cm; Wt 51.7 kg
[2019-07-19] MEDS ORDERED: DIFLUCAN200 MG PO (13:48)
[2019-07-19 14:35] VITALS: BP 149/94
--- NOTE | 2019-07-19 15:44 | NUR ---
1500 - TELEMETRY REMOVED. 1505 7 FR, 15CM CATHETER REMOVED FROM INTERNAL JUGULAR. PRESSURE HELD X 20 MINUTES. NO BLEEDING FROM SITE. CATHETER TIP INTACT. 2X2 GAUZE APPLIED AND SECURED WITH CLEAR TEGADERM DRESSING. 1530 DISCHARGE INSTRUCTIONS PROVIDED TO PATIENT AND HIS MOTHER. PATIENT VERBALIZED UNDERSTANDING OF ALL INSTRUCTIONS PROVIDED. 1540 PATIENT LEFT UNIT VIA WHEELCHAIR WITH ALL PERSONAL BELONGINGS. PATIENT LEFT UNIT IN NO ACUTE DISTRESS. PATIENT DISCHARGED TO HOME WITH HIS MOTHER.
--- NOTE | 2019-07-21 08:44 | MORECARE ---
CASE MANAGEMENT DISCHARGE SUMMARY PATIENT: DEJAH BALDWIN UNIT: [id number] ADM DATE: 07/19/19 AGE: 43 : 75 SEX: M ROOM/BED: D.2104 AUTHOR: ARASELI CISNEROS PHYSICIAN: REFERRING PHYSICIAN: JOSH HERNANDEZ MD DATE OF SERVICE: 07/21/19 Discharge Plan Patient Name: DEJAH BALDWIN [facility] : 1975 Planned Disposition: Home Anticipated Discharge Date: 07/19/19 Discharge Date: 07/19/2019 Expected LOS: 1 Initial Reviewer: [email or web address] Initial Review Date: 07/21/2019 Generated: 07/21/19 9:44 am Patient Name: DEJAH BALDWIN Page 02561 at 0844 All edits/amendments must be made on the electronic document DICTATION DATE: 07/21/1944 ART SPECIALIST: JORI 07/21/19 0844 RPT#: [id number] DC DATE:07/19/19 STATUS: DIS IN [facility] [address] [place] [address] END OF REPORT
[2019-07-24] MEDS ORDERED: ZITHROMAX 500M500 MG IV (12:01)
[2019-07-24] MEDS ORDERED: LOVENOX60 MG/0.6 SC (12:01)
[2019-07-24] MEDS ORDERED: MYAMBUTOL400 MG PO (12:01)
[2019-07-24] MEDS ORDERED: PROTONIX40 MG PO (12:02)
[2019-07-24] MEDS ORDERED: THORAZINE25 MG PO (12:02)
[2019-07-24] MEDS ORDERED: CYANOCOBAL1000 MCG/4 SC (12:02)
[2019-07-24] MEDS ORDERED: Morphine Sulfate IV (12:02)
== END 2019-08-14 11:12 | disposition home or self-care (01) ==
LOC: D.ER 20:38 → OBSVTIME 07-19 00:24 → D.M2 07-19 00:24 → D.ER 07-19 00:24 → D.M2 07-19 00:24
PROVIDERS: Family Medicine; ADMIT Internal Medicine Nephrology; ATTEND Internal Medicine Nephrology
PROC: 02HV33Z Insertion of Infusion Device into Superior Vena Cava, Percutaneous Approach (ICD-10-PCS; principal; 2019-07-19)
PROC: B548ZZA Ultrasonography of Superior Vena Cava, Guidance (ICD-10-PCS; 2019-07-19)
DX: B20 Human immunodeficiency virus [HIV] disease (principal); E43 Unspecified severe protein-calorie malnutrition; B37.81 Candidal esophagitis; N17.9 Acute kidney failure, unspecified; Z68.1 Body mass index [BMI] 19.9 or less, adult; F17.213 Nicotine dependence, cigarettes, with withdrawal; R79.89 Other specified abnormal findings of blood chemistry; D64.9 Anemia, unspecified; I10 Essential (primary) hypertension; F14.10 Cocaine abuse, uncomplicated; Z91.19 Patient's noncompliance with other medical treatment and regimen; G40.909 Epilepsy, unspecified, not intractable, without status epilepticus

== ENCOUNTER 2019-07-19 22:06 | Inpatient (IN) | payer MEDICAID ==
[~2019-07-19] VITALS: Ht 182.9 cm; Wt 53.6 kg
[~2019-07-19 22:06] MED LIST changes: +SYMTUZA PO; +TRIUMEQ TABLET1 EACH PO; +[UNRECOGNIZED DRUG - OTHER] PO
[2019-07-19 22:48] LABS: BASOPHILS 0 % (0-2); HEMATOCRIT 30.3 % (42.0-54.0); IMMATURE GRANULOCYTES 0.4 % (0-5); LYMPHOCYTES 6.4 % (15-50); MCH 29.6 pg (26.0-34.0); MCHC 34.3 g/dL (31.0-37.0); MCV 86.3 fL (80.0-100.0); MEAN PLATELET VOLUME 9.4 fL (7.4-10.4); MONOCYTES 11.5 % (2-11); NEUTROPHILS 79.7 % (40-80); PLATELET COUNT 273 10x3/uL (130-400); RBC 3.51 10x6/uL (4.20-6.10); RDW 16.9 % (11.5-14.5); WBC 7.8 10x3/uL (4.8-10.8)
[2019-07-19 22:50] LABS: HEMOGLOBIN 10.4 g/dL (13.5-17.5)
[2019-07-19 23:26] LABS: ALBUMIN 1.5 g/dL (3.4-5.0); ALKALINE PHOSPHATASE 58 U/L (46-116); ALT (SGPT) 6 U/L (10-68); BILIRUBIN - TOTAL 0.24 mg/dL (0.2-1.3); CALC OSMOLALITY 281 mosm/kg (275-300); CALCIUM 7.2 mg/dL (8.5-10.1); CARBON DIOXIDE 18.6 mmol/L (21.0-32.0); CHLORIDE - SERUM 112 mmol/L (98-107); CREATININE - SERUM 0.8 mg/dL (0.6-1.3); GLUCOSE 101 mg/dL (74-106); PROTEIN - SERUM 6.2 g/dL (6.4-8.2); SODIUM 141 mmol/L (136-145); UREA NITROGEN 15 mg/dL (7-18); eGFR NON AFRICAN AMERICAN > 90 mL/min (90-120)
[2019-07-19 23:41] LABS: APPEARANCE CLEAR (CLEAR); BILIRUBIN NEGATIVE (NEGATIVE); COLOR DK YELLOW (YELLOW); GLUCOSE NEGATIVE (NEGATIVE); KETONE SMALL mg/dL (NEGATIVE); NITRITE NEGATIVE (NEGATIVE); PROTEIN NEGATIVE (NEGATIVE); SPECIFIC GRAVITY 1.015 (1.005-1.020); UROBILINOGEN NORMAL (NORMAL)
[2019-07-19 23:45] LABS: AMYLASE - SERUM 124 U/L (25-115); CKMB 0.8 U/L (0.0-3.6); CREATINE KINASE 43 UL (21-232); LIPASE 245 U/L (73-393); MAGNESIUM - SERUM 1.5 mg/dL (1.8-2.4)
[2019-07-19 23:46] LABS: TROPONIN-I 0.074 ng/mL (0.000-0.060)
[2019-07-20 01:11] LABS: UDS - AMPHET NEGATIVE QUAL (NEGATIVE); UDS - BARB NEGATIVE QUAL (NEGATIVE); UDS - BENZO NEGATIVE QUAL (NEGATIVE); UDS - COCAINE POSITIVE QUAL (NEGATIVE); UDS - OPIATE NEGATIVE QUAL (NEGATIVE); UDS - PCP NEGATIVE QUAL (NEGATIVE); UDS - THC NEGATIVE QUAL (NEGATIVE)
[2019-07-20 02:32] VITALS: BP 142/97; BMI 19.3
[2019-07-20 06:03] LABS: BASOPHILS 0 % (0-2); EOSINOPHILS 2.6 % (0-7); HEMATOCRIT 32.1 % (42.0-54.0); HEMOGLOBIN 10.6 g/dL (13.5-17.5); IMMATURE GRANULOCYTES 0.4 % (0-5); LYMPHOCYTES 7.4 % (15-50); MCV 87.7 fL (80.0-100.0); MEAN PLATELET VOLUME 9.9 fL (7.4-10.4); MONOCYTES 14.1 % (2-11); NEUTROPHILS 75.5 % (40-80); PLATELET COUNT 298 10x3/uL (130-400); RBC 3.66 10x6/uL (4.20-6.10); RDW 17.3 % (11.5-14.5); WBC 8.2 10x3/uL (4.8-10.8)
[2019-07-20 06:33] LABS: ALBUMIN 1.4 g/dL (3.4-5.0); ALKALINE PHOSPHATASE 57 U/L (46-116); BILIRUBIN - TOTAL 0.16 mg/dL (0.2-1.3); CALC OSMOLALITY 280 mosm/kg (275-300); CALCIUM 7.4 mg/dL (8.5-10.1); CARBON DIOXIDE 19.5 mmol/L (21.0-32.0); CHLORIDE - SERUM 111 mmol/L (98-107); CREATININE - SERUM 0.6 mg/dL (0.6-1.3); GLUCOSE 82 mg/dL (74-106); POTASSIUM - SERUM 3.4 mmol/L (3.5-5.1); PROTEIN - SERUM 5.9 g/dL (6.4-8.2); SODIUM 141 mmol/L (136-145); TROPONIN-I 0.059 ng/mL (0.000-0.060); UREA NITROGEN 14 mg/dL (7-18); eGFR NON AFRICAN AMERICAN > 90 mL/min (90-120)
[2019-07-20 06:35] LABS: ALT (SGPT) 4 U/L (10-68)
[2019-07-20 07:59] VITALS: BP 107/77
[2019-07-20 14:17] VITALS: BP 140/82
[2019-07-20 20:00] VITALS: BP 152/82
[2019-07-21 04:00] VITALS: BP 132/85
[2019-07-21 06:44] LABS: BASOPHILS 0 % (0-2); EOSINOPHILS 1.9 % (0-7); HEMATOCRIT 30.9 % (42.0-54.0); HEMOGLOBIN 10.6 g/dL (13.5-17.5); IMMATURE GRANULOCYTES 0.5 % (0-5); LYMPHOCYTES 6.6 % (15-50); MCH 29.4 pg (26.0-34.0); MCHC 34.3 g/dL (31.0-37.0); MCV 85.8 fL (80.0-100.0); MONOCYTES 15.9 % (2-11); NEUTROPHILS 75.1 % (40-80); PLATELET COUNT 349 10x3/uL (130-400); WBC 7.7 10x3/uL (4.8-10.8)
[2019-07-21 07:03] LABS: ALBUMIN 1.5 g/dL (3.4-5.0); ALKALINE PHOSPHATASE 66 U/L (46-116); BILIRUBIN - TOTAL 0.32 mg/dL (0.2-1.3); CALC OSMOLALITY 274 mosm/kg (275-300); CALCIUM 7.6 mg/dL (8.5-10.1); CARBON DIOXIDE 16.5 mmol/L (21.0-32.0); CHLORIDE - SERUM 112 mmol/L (98-107); CREATININE - SERUM 0.5 mg/dL (0.6-1.3); GLUCOSE 82 mg/dL (74-106); MAGNESIUM - SERUM 1.6 mg/dL (1.8-2.4); POTASSIUM - SERUM 3.7 mmol/L (3.5-5.1); PROTEIN - SERUM 6.3 g/dL (6.4-8.2); SODIUM 138 mmol/L (136-145); UREA NITROGEN 12 mg/dL (7-18); eGFR NON AFRICAN AMERICAN > 90 mL/min (90-120)
[2019-07-21 07:06] LABS: ALT (SGPT) 10 U/L (10-68)
[2019-07-21 08:36] VITALS: BP 140/96
[2019-07-21 12:38] VITALS: BP 136/94
[2019-07-21 12:46] LABS: LDH 223 U/L (85-227)
[2019-07-21 13:11] VITALS: BMI 16.0
[2019-07-21 14:00] LABS: INR 1.29 (0.85-1.17); PROTIME 15.5 SECONDS (11.6-15.0)
[2019-07-21 17:25] VITALS: BP 114/65
[2019-07-21 17:35] VITALS: Ht 182.9 cm; Wt 53.6 kg
[2019-07-22] VITALS (11 sets, daily range): BP systolic 119–154; BP diastolic 54–99
[2019-07-22 06:32] LABS: BASOPHILS 0 % (0-2); HEMATOCRIT 28.7 % (42.0-54.0); HEMOGLOBIN 9.7 g/dL (13.5-17.5); IMMATURE GRANULOCYTES 0.4 % (0-5); MCHC 33.8 g/dL (31.0-37.0); MCV 85.9 fL (80.0-100.0); MEAN PLATELET VOLUME 9.7 fL (7.4-10.4); MONOCYTES 13.4 % (2-11); NEUTROPHILS 78.2 % (40-80); PLATELET COUNT 335 10x3/uL (130-400); RBC 3.34 10x6/uL (4.20-6.10); WBC 7.2 10x3/uL (4.8-10.8)
[2019-07-22 06:39] LABS: INR 1.41 (0.85-1.17); PROTIME 16.7 SECONDS (11.6-15.0)
[2019-07-22 06:40] LABS: APTT 57.8 SECONDS (22.8-39.4)
[2019-07-22 06:46] LABS: ALBUMIN 1.3 g/dL (3.4-5.0); ALKALINE PHOSPHATASE 62 U/L (46-116); ALT (SGPT) 9 U/L (10-68); BILIRUBIN - TOTAL 0.29 mg/dL (0.2-1.3); CALC OSMOLALITY 279 mosm/kg (275-300); CALCIUM 7.2 mg/dL (8.5-10.1); CHLORIDE - SERUM 113 mmol/L (98-107); CREATININE - SERUM 0.8 mg/dL (0.6-1.3); GLUCOSE 81 mg/dL (74-106); LDH 123 U/L (85-227); MAGNESIUM - SERUM 1.6 mg/dL (1.8-2.4); POTASSIUM - SERUM 3.9 mmol/L (3.5-5.1); PROTEIN - SERUM 5.8 g/dL (6.4-8.2); SODIUM 141 mmol/L (136-145); UREA NITROGEN 13 mg/dL (7-18); eGFR NON AFRICAN AMERICAN > 90 mL/min (90-120)
--- NOTE | 2019-07-22 15:40 | MORECARE ---
CASE MANAGEMENT DISCHARGE SUMMARY PATIENT: DEJAH BALDWIN UNIT: [id number] ADM DATE: 07/20/19 AGE: 43 : 75 SEX: M ROOM/BED: D.2235 AUTHOR: AMELIADOC PHYSICIAN: REFERRING PHYSICIAN: JOSH HERNANDEZ MD DATE OF SERVICE: 07/22/19 Discharge Plan Patient Name: DEJAH BALDIWN Facility: [facility]:[place] : 1975 Planned Disposition: Home Anticipated Discharge Date: Discharge Date: Expected LOS: Initial Reviewer: [email or web address] Initial Review Date: 07/22/2019 Generated: 07/22/19 4:39 pm Comments DCP- Discharge Planning Updated by [email or web address]: Kayy Man on 07/22/19 2:[address] Patient Name: DEJAH BALDWIN Admission Status: ER Accout number: [id number] Admission Date: 07-20-2019 : 1975 Admission Diagnosis: Attending: JOSH HERNANDEZ Current LOS: 2 Anticipated DC Date: Planned Disposition: Home Primary Insurance: MEDICAID [place] Discharge Planning Comments: CM met with patient to complete initial dc planning assessment. CM educated patient on the CM role and verbal consent given by patient to complete assessment. Patient lives at home with his mother. At discharge patient plans to return and feels this is a safe discharge. CM discussed availability of home health, rehab services, and medical equipment. Patient denied known discharge needs at this time. CM will continue to follow and will assist as needed with dc plans/needs. Senior Insight Manager International: Kayy Man DCPIA - Discharge Planning Initial Assessment Updated by [email or web address]: Kayy Man on 07/22/19 3:32 pm * Is the patient Alert and Oriented? Yes * PCP [facility] [address] * Pharmacy [facility] * Preadmission Environment Home with Family * ADLs Independent * Equipment None * List name and contact numbers for known caregivers / representatives who currently or will assist patient after discharge: Mouna Cota - mother - [phone] * Verbal permission to speak to the caregivers and representatives has been obtained from the patient. Yes * Community resources currently utilized None * Additional services required to return to the preadmission environment? No * Can the patient safely return to the preadmission environment? Yes * Has this patient been hospitalized within the prior 30 days at any hospital? Yes Patient Name: DEJAH BALDWIN Page 49405 at 1540 All edits/amendments must be made on the electronic document DICTATION DATE: 07/22/191538 ASSET AVAILABILITY LEADER: JORI 07/22/191538 RPT#: [id number] DC DATE: STATUS: ADM IN [facility] [address] [place] [address] END OF REPORT
[2019-07-23 07:05] LABS: BASOPHILS 0 % (0-2); EOSINOPHILS 1.1 % (0-7); HEMATOCRIT 28.1 % (42.0-54.0); HEMOGLOBIN 9.4 g/dL (13.5-17.5); IMMATURE GRANULOCYTES 0.6 % (0-5); LYMPHOCYTES 7.3 % (15-50); MCH 29.3 pg (26.0-34.0); MCHC 33.5 g/dL (31.0-37.0); MCV 87.5 fL (80.0-100.0); MEAN PLATELET VOLUME 9.8 fL (7.4-10.4); MONOCYTES 15.4 % (2-11); NEUTROPHILS 75.6 % (40-80); PLATELET COUNT 318 10x3/uL (130-400); RBC 3.21 10x6/uL (4.20-6.10); RDW 17.3 % (11.5-14.5)
[2019-07-23 07:28] LABS: ALBUMIN 1.3 g/dL (3.4-5.0); ALKALINE PHOSPHATASE 61 U/L (46-116); ALT (SGPT) 6 U/L (10-68); BILIRUBIN - TOTAL 0.23 mg/dL (0.2-1.3); CALC OSMOLALITY 283 mosm/kg (275-300); CALCIUM 7.4 mg/dL (8.5-10.1); CARBON DIOXIDE 23.5 mmol/L (21.0-32.0); CHLORIDE - SERUM 112 mmol/L (98-107); CREATININE - SERUM 0.8 mg/dL (0.6-1.3); GLUCOSE 93 mg/dL (74-106); MAGNESIUM - SERUM 1.7 mg/dL (1.8-2.4); POTASSIUM - SERUM 3.5 mmol/L (3.5-5.1); PROTEIN - SERUM 5.9 g/dL (6.4-8.2); SODIUM 142 mmol/L (136-145); UREA NITROGEN 14 mg/dL (7-18); eGFR NON AFRICAN AMERICAN > 90 mL/min (90-120)
[2019-07-23 08:01] VITALS: BP 127/77
[2019-07-23 13:57] VITALS: BP 122/82
[2019-07-23 20:38] VITALS: BP 130/93
[2019-07-24 04:41] VITALS: BP 133/88
[2019-07-24 06:32] LABS: BASOPHILS 0 % (0-2); HEMATOCRIT 28.8 % (42.0-54.0); HEMOGLOBIN 9.5 g/dL (13.5-17.5); IMMATURE GRANULOCYTES 1.2 % (0-5); LYMPHOCYTES 7.4 % (15-50); MCH 28.8 pg (26.0-34.0); MCV 87.3 fL (80.0-100.0); MEAN PLATELET VOLUME 10.1 fL (7.4-10.4); MONOCYTES 15.6 % (2-11); NEUTROPHILS 74.8 % (40-80); PLATELET COUNT 309 10x3/uL (130-400); RDW 17.1 % (11.5-14.5); WBC 6.9 10x3/uL (4.8-10.8)
[2019-07-24 07:01] LABS: ALBUMIN 1.3 g/dL (3.4-5.0); ALKALINE PHOSPHATASE 57 U/L (46-116); BILIRUBIN - TOTAL 0.63 mg/dL (0.2-1.3); CALCIUM 7.4 mg/dL (8.5-10.1); CARBON DIOXIDE 22.6 mmol/L (21.0-32.0); CHLORIDE - SERUM 109 mmol/L (98-107); CREATININE - SERUM 0.7 mg/dL (0.6-1.3); GLUCOSE 96 mg/dL (74-106); MAGNESIUM - SERUM 1.4 mg/dL (1.8-2.4); PHOSPHOROUS 2.9 mg/dL (2.5-4.9); POTASSIUM - SERUM 3.7 mmol/L (3.5-5.1); PROTEIN - SERUM 5.8 g/dL (6.4-8.2); SODIUM 137 mmol/L (136-145); eGFR NON AFRICAN AMERICAN > 90 mL/min (90-120)
[2019-07-24 07:04] LABS: ALT (SGPT) < 6 U/L (10-68); CALC OSMOLALITY 272 mosm/kg (275-300); UREA NITROGEN 10 mg/dL (7-18)
[2019-07-24 08:43] VITALS: BP 128/76
--- NOTE | 2019-07-24 11:28 | MORECARE ---
CASE MANAGEMENT DISCHARGE SUMMARY PATIENT: DEJAH BALDWIN UNIT: [id number] ADM DATE: 07/20/19 AGE: 43 : 75 SEX: M ROOM/BED: D.2240 AUTHOR: AMELIA,DOC PHYSICIAN: REFERRING PHYSICIAN: JOSH HERNANDEZ MD DATE OF SERVICE: 07/24/19 Discharge Plan Patient Name: DEJAH BALDWIN Facility: [facility]:[place] : 1975 Planned Disposition: Home Anticipated Discharge Date: Discharge Date: Expected LOS: Initial Reviewer: [email or web address] Initial Review Date: 07/22/2019 Generated: 07/24/19 12:27 pm DCP- Discharge Planning Updated by [email or web address]: Kayy Man on 07/22/19 2:[address] Patient Name: DEJAH BALDWIN Admission Status: ER Accout number: [id number] Admission Date: 07-20-2019 : 1975 Admission Diagnosis: Attending: JOSH HERNANDEZ Current LOS: 2 Anticipated DC Date: Planned Disposition: Home Primary Insurance: MEDICAID [place] Discharge Planning Comments: CM met with patient to complete initial dc planning assessment. CM educated patient on the CM role and verbal consent given by patient to complete assessment. Patient lives at home with his mother. At discharge patient plans to return and feels this is a safe discharge. CM discussed availability of home health, rehab services, and medical equipment. Patient denied known discharge needs at this time. CM will continue to follow and will assist as needed with dc plans/needs. Marine Animal Trainer: Kayy Man DCPIA - Discharge Planning Initial Assessment Updated by [email or web address]: Kayy Man on 07/22/19 3:32 pm * Is the patient Alert and Oriented? Yes * PCP [facility] [place] * Pharmacy [facility] * Preadmission Environment Home with Family * ADLs Independent * Equipment None * List name and contact numbers for known caregivers / representatives who currently or will assist patient after discharge: Mouna Cota - mother - [phone] * Verbal permission to speak to the caregivers and representatives has been obtained from the patient. Yes * Community resources currently utilized None * Additional services required to return to the preadmission environment? No * Can the patient safely return to the preadmission environment? Yes * Has this patient been hospitalized within the prior 30 days at any hospital? Yes External Providers External Provider: [facility] Next Contact Date: Service Request Date: Service Type: Resolution: Reviewer: Comments: Last DP export: 07/22/19 2:40 Patient Name: DEJAH BALDWIN Page 48348 at 1128 All edits/amendments must be made on the electronic document DICTATION DATE: 07/24/191126 FIRER WATERTENDER: JORI 07/24/191126 RPT#: [id number] DC DATE: STATUS: ADM IN [facility] [address] [place] [address] END OF REPORT
--- NOTE | 2019-07-24 11:35 | MORECARE ---
CASE MANAGEMENT DISCHARGE SUMMARY PATIENT: DEJAH BALDWIN UNIT: [id number] ADM DATE: 07/20/19 AGE: 43 : 75 SEX: M ROOM/BED: D.2240 AUTHOR: AMELIA,DOC PHYSICIAN: REFERRING PHYSICIAN: JOSH HERNANDEZ MD DATE OF SERVICE: 07/24/19 Discharge Plan Patient Name: DEJAH BALDWIN Facility: [facility]:[place] : 1975 Planned Disposition: Home Anticipated Discharge Date: Discharge Date: Expected LOS: Initial Reviewer: [email or web address] Initial Review Date: 07/22/2019 Generated: 07/24/19 12:35 pm Comments DCP- Discharge Planning Updated by [email or web address]: Kayy Man on 07/24/19 10:[address] Transfer team initialted, spoke with Ely and face sheet faxed. I spoke with Ena, prefabricated houses trimmer, and she approves per Osmin. Primary nurse, Omayra, informed and warehouse logistics coordinator (Elizabeth). Patient and mother informed and they agree with transfer. CM will continue to follow and assist with discharge planning/needs. DCP- Discharge Planning Updated by [email or web address]: Kayy Man on 07/22/19 2:[address] Patient Name: DEJAH BALDWIN Admission Status: ER Accout number: [id number] Admission Date: 07-20-2019 : 1975 Admission Diagnosis: Attending: JOSH HERNANDEZ Current LOS: 2 Anticipated DC Date: Planned Disposition: Home Primary Insurance: MEDICAID [place] Discharge Planning Comments: CM met with patient to complete initial dc planning assessment. CM educated patient on the CM role and verbal consent given by patient to complete assessment. Patient lives at home with his mother. At discharge patient plans to return and feels this is a safe discharge. CM discussed availability of home health, rehab services, and medical equipment. Patient denied known discharge needs at this time. CM will continue to follow and will assist as needed with dc plans/needs. Weatherization Crew Leader: Kayy Man DCPIA - Discharge Planning Initial Assessment Updated by [email or web address]: Kayy Man on 07/22/19 3:32 pm * Is the patient Alert and Oriented? Yes * PCP [facility] [address] * Pharmacy [facility] * Preadmission Environment Home with Family * ADLs Independent * Equipment None * List name and contact numbers for known caregivers / representatives who currently or will assist patient after discharge: Mouna Cota - mother - [phone] * Verbal permission to speak to the caregivers and representatives has been obtained from the patient. Yes * Community resources currently utilized None * Additional services required to return to the preadmission environment? No * Can the patient safely return to the preadmission environment? Yes * Has this patient been hospitalized within the prior 30 days at any hospital? Yes Last DP export: 07/24/19 10:28 Patient Name: DEJAH BALDWIN Page 13711 at 1135 All edits/amendments must be made on the electronic document DICTATION DATE: 07/24/191133 BAKER PIE: JORI 07/24/191133 RPT#: [id number] DC DATE: STATUS: ADM IN [facility] [address] [place] [address] END OF REPORT
[2019-07-24] MEDS ORDERED: ZITHROMAX 500M500 MG IV (12:01)
[2019-07-24] MEDS ORDERED: MYAMBUTOL400 MG PO (12:01)
[2019-07-24] MEDS ORDERED: LOVENOX60 MG/0.6 SC (12:01)
[2019-07-24] MEDS ORDERED: THORAZINE25 MG PO (12:02)
[2019-07-24] MEDS ORDERED: Morphine Sulfate IV (12:02)
[2019-07-24] MEDS ORDERED: PROTONIX40 MG PO (12:02)
[2019-07-24] MEDS ORDERED: CYANOCOBAL1000 MCG/4 SC (12:02)
[2019-07-24 18:45] VITALS: BP 119/45
[2019-07-24 20:00] VITALS: BP 119/79
[2019-07-25 03:07] LABS: FACTOR II DNA ANALYSIS Negative (())
[2019-07-25 16:08] LABS: BASOS 0 % (Not Estab.); CD4 - % CD4 POS. LYMPH 5.6 % (30.8-58.5); CD4 - ABSOLUTE CD4 HELPER 22 /uL (359-1519); CD4:8 - % CD8 POS LYMPH 41.3 % (12.0-35.5); CD4:8 - ABS CD8 SUPPRESSOR 165 /uL (109-897); CD4:8 - CD4/CD8 RATIO 0.14 (0.92-3.72); EOS 3 % (Not Estab.); EOS (ABSOLUTE) 0.2 x10E3/uL (0.0-0.4); HEMATOCRIT 30.2 % (37.5-51.0); HEMOGLOBIN 9.5 g/dL (13.0-17.7); LYMPHS 7 % (Not Estab.); LYMPHS (ABSOLUTE) 0.4 x10E3/uL (0.7-3.1); MCH 28.8 pg (26.6-33.0); MCHC 31.5 g/dL (31.5-35.7); MCV 92 fL (79-97); MONOCYTES 13 % (Not Estab.); MONOCYTES (ABSOLUTE) 0.8 x10E3/uL (0.1-0.9); NEUTROPHILS 76 % (Not Estab.); PLATELETS 288 x10E3/uL (150-450); RDW 16.9 % (12.3-15.4); WBC 6.5 x10E3/uL (3.4-10.8)
--- NOTE | 2019-07-29 07:59 | MORECARE ---
CASE MANAGEMENT DISCHARGE SUMMARY PATIENT: DEJAH BALDWIN UNIT: [id number] ADM DATE: 07/20/19 AGE: 43 : 75 SEX: M ROOM/BED: D.2240 AUTHOR: ARASELI CISNEROS PHYSICIAN: REFERRING PHYSICIAN: JOSH HERNANDEZ MD DATE OF SERVICE: 07/29/19 Discharge Plan Patient Name: DEJAH BALDWIN Facility: [facility]:[place] : 1975 Planned Disposition: Home Anticipated Discharge Date: Discharge Date: 07/25/2019 Expected LOS: 0 Initial Reviewer: [email or web address] Initial Review Date: 07/22/2019 Generated: 07/29/19 8:58 am Comments DCP- Discharge Planning Updated by [email or web address]: Kayy Man on 07/24/19 10:[address] Transfer team initialted, spoke with Ely and face sheet faxed. I spoke with Ena, household appliance assembler, and she approves per Osmni. Primary nurse, Omayra, informed and creative coordinator (Elizabeth). Patient and mother informed and they agree with transfer. CM will continue to follow and assist with discharge planning/needs. DCP- Discharge Planning Updated by [email or web address]: Kayy Man on 07/22/19 2:[address] Patient Name: DEJAH BALDWIN Admission Status: ER Accout number: [id number] Admission Date: 07-20-2019 : 1975 Admission Diagnosis: Attending: JOSH HERNANDEZ Current LOS: 2 Anticipated DC Date: Planned Disposition: Home Primary Insurance: MEDICAID [place] Discharge Planning Comments: CM met with patient to complete initial dc planning assessment. CM educated patient on the CM role and verbal consent given by patient to complete assessment. Patient lives at home with his mother. At discharge patient plans to return and feels this is a safe discharge. CM discussed availability of home health, rehab services, and medical equipment. Patient denied known discharge needs at this time. CM will continue to follow and will assist as needed with dc plans/needs. Outer Diameter Grinder: Kayy Man DCPIA - Discharge Planning Initial Assessment Updated by [email or web address]: Kayy Man on 07/22/19 3:32 pm * Is the patient Alert and Oriented? Yes * PCP [facility] [place] * Pharmacy [facility] * Preadmission Environment Home with Family * ADLs Independent * Equipment None * List name and contact numbers for known caregivers / representatives who currently or will assist patient after discharge: Mouna Cota - mother - [phone] * Verbal permission to speak to the caregivers and representatives has been obtained from the patient. Yes * Community resources currently utilized None * Additional services required to return to the preadmission environment? No * Can the patient safely return to the preadmission environment? Yes * Has this patient been hospitalized within the prior 30 days at any hospital? Yes Last DP export: 07/24/19 10:35 Patient Name: DEJAH BALDWIN Page 41008 at 0759 All edits/amendments must be made on the electronic document DICTATION DATE: 07/29/19757 COOK TORTILLA: JORI 07/29/19757 RPT#: [id number] DC DATE:07/25/19 STATUS: DIS IN [facility] [address] [place] [address] END OF REPORT
[2019-08-01 19:08] LABS: AEROBE ID Final report (())
== END 2019-07-25 01:45 | disposition short-term general hospital (02) | DRG 974 ==
LOC: D.ER 22:06 → D.MS 07-20 01:15
PROVIDERS: Emergency Medicine; Family Medicine; Internal Medicine Hematology & Oncology; Radiology Diagnostic Radiology; Radiology Vascular & Interventional Radiology; ADMIT Internal Medicine Nephrology; ATTEND Internal Medicine Nephrology
PROC: 07DD3ZX Extraction of Aortic Lymphatic, Percutaneous Approach, Diagnostic (ICD-10-PCS; principal; 2019-07-22 10:57)
DX: B20 Human immunodeficiency virus [HIV] disease (principal); I26.99 Other pulmonary embolism without acute cor pulmonale; B37.81 Candidal esophagitis; E43 Unspecified severe protein-calorie malnutrition; Z68.1 Body mass index [BMI] 19.9 or less, adult; F17.213 Nicotine dependence, cigarettes, with withdrawal; A31.9 Mycobacterial infection, unspecified; A15.9 Respiratory tuberculosis unspecified; D73.5 Infarction of spleen; D64.9 Anemia, unspecified; E87.6 Hypokalemia; G40.909 Epilepsy, unspecified, not intractable, without status epilepticus; Z91.14 Patient's other noncompliance with medication regimen; R59.0 Localized enlarged lymph nodes; I10 Essential (primary) hypertension; K20.9 Esophagitis, unspecified; E83.51 Hypocalcemia; E83.42 Hypomagnesemia; F14.10 Cocaine abuse, uncomplicated; R06.6 Hiccough